=== PATIENT | male | born 1960 ===

== ENCOUNTER 2017-06-30 10:22 | Inpatient (IN) | payer OTHER ==
--- NOTE | 2017-06-30 11:48 | C.PDOC ---
History Of Present Illness 57yo male, presents to ER for evaluation of a painful mass to his right thigh. Patient states he was seen by Dr. Blanc on 06/26/17 and was informed to come to the ER which he didn't. Patient states the area started draining on Friday the and he called the clinic to make an appointment for visit; patient was seen in the clinic today and was sent to the ER for evaluation. He reports pain to the area. Patient denies any fever, chills and has Rx from Dr Blanc, consult Josias Time Seen by Provider: 06/30/17 11:27 Chief Complaint (Nursing): Lower Extremity Problem/Injury History Per: Patient History/Exam Limitations: no limitations Onset/Duration Of Symptoms: Days Current Symptoms Are (Timing): Still Present Additional History Per: Patient Past Medical History Reviewed: Historical Data, Nursing Documentation, Vital Signs Vital Signs: Last Vital Signs Temp 98.2 F 06/30/17 10:40 Pulse 114 H 06/30/17 10:40 Resp 18 06/30/17 10:40 BP 143/82 06/30/17 10:40 Pulse Ox 95 06/30/17 13:04 - Medical History PMH: Diabetes (unsure, does not take medications) Surgical History: No Surg Hx Family History: States: No Known Family Hx - Social History Hx Alcohol Use: No Hx Substance Use: No - Immunization History Hx Tetanus Toxoid Vaccination: No Hx Influenza Vaccination: No Hx Pneumococcal Vaccination: No Review Of Systems Constitutional: Negative for: Fever, Chills Respiratory: Negative for: Cough Gastrointestinal: Negative for: Abdominal Pain Musculoskeletal: Positive for: Leg Pain (right thigh with painful mass) Neurological: Negative for: Headache Physical Exam - Physical Exam Appears: Non-toxic, No Acute Distress Skin: Normal Color, Warm, Dry Head: Atraumatic, Normacephalic Eye(s): bilateral: Normal Inspection, EOMI Neck: Supple Chest: Symmetrical Cardiovascular: Rhythm Regular Respiratory: Normal Breath Sounds Gastrointestinal/Abdominal: Normal Exam, Soft, No Tenderness Extremity: Tenderness (tenderness to right inner thigh), No Deformity, Other ( 10cm by 6cm indurated erythemnatous mass to right inner thigh with purulent discharge) Neurological/Psych: Oriented x3, Normal Speech, Normal Motor, Normal Sensation ED Course And Treatment - Laboratory Results Result Diagrams: 06/30/17 12:16 06/30/17 12:16 O2 Sat by Pulse Oximetry: 95 (RA) Medical Decision Making Medical Decision Making: Impression: Abscess to right inner thigh Plan: -- CMP -- CBC -- Wound culture -- Urinalysis 1230 -- Patient to be taken to OR by Dr. Asencio for I&D 1302 Dr. Cruz informed of case and plan; patient to be admitted under Dr. Cruz. Disposition - Disposition Disposition: HOSPITALIZED Disposition Time: 13:00 Condition: STABLE - POA Present On Arrival: Poor Glycemic Control - Clinical Impression Clinical Impression: Abscess of right thigh - PA / [employer] / Resident Statement MD/DO has reviewed & agrees with the documentation as recorded. - Scribe Statement The provider has reviewed the documentation as recorded by the Danielibe Moriah Weeks Provider Scribe Attestation: All medical record entries made by the Scribe were at my direction and personally dictated by me. I have reviewed the chart and agree that the record accurately reflects my personal performance of the history, physical exam, medical decision making, and the department course for this patient. I have also personally directed, reviewed, and agree with the discharge instructions and disposition. Decision To Admit - Pt Status Changed To: Hospital Disposition Of: Inpatient - Admit Certification Admit to Inpatient:: After my assessment, the patient will require hospitalization for at least two midnights. This is because of the severity of symptoms shown, intensity of services needed, and/or the medical risk in this patient being treated as an outpatient. - InPatient: Physician Admission Certification: I certify that this patient requires 2 or more midnights of care for the following reason:: Patient with acute abscess to right thigh, needs surgical drainage. Dr Ferrara is consulting physician. Anthony admits for John Paul Blanc and accepts case - . Bed Request Type: Regular Admitting Physician: Carlito Cruz Patient Diagnosis: Abscess of right thigh
[2017-06-30 12:22] LABS: BASO # 0.1 K/uL (0.0-0.2); BASO % 0.8 % (0.0-2.0); EOS # 0.1 K/uL (0.0-0.7); EOS % 0.5 % (0.0-4.0); HEMOGLOBIN 16.2 g/dL (12.0-18.0); LYMPH # 2.6 K/uL (1.0-4.3); LYMPH % 24.1 % (20.0-40.0); MEAN CELL VOLUME 86.4 fL (80.0-94.0); MEAN CORPUSCULAR HEMOGLOBIN 29.4 pg (27.0-31.0); MEAN CORPUSCULAR HGB CONC 34.1 g/dL (33.0-37.0); MEAN PLATELET VOLUME 7.5 fL (7.2-11.7); MONO # 1.1 K/uL (0.0-0.8); MONO % 10.1 % (0.0-10.0); NEUT # 7.1 K/uL (1.8-7.0); NEUT % 64.5 % (50.0-75.0); RBC 5.51 Mil/uL (4.40-5.90); RED CELL DISTRIBUTION WIDTH 13.1 % (11.5-14.5); WHITE BLOOD COUNT 10.9 K/uL (4.8-10.8)
[2017-06-30 12:37] LABS: ALB/GLOB RATIO 0.7 (1.0-2.1); ALBUMIN 3.5 g/dL (3.5-5.0); ALT/SGPT 51 U/L (21-72); AST/SGOT 40 U/L (17-59); BLOOD UREA NITROGEN 13 mg/dL (9-20); GFR AFRICAN-AMERICAN > 60; GFR NON-AFRICAN AMERICAN > 60
--- NOTE | 2017-06-30 12:44 | CP.PCM.CON ---
<Julio Nielson - Last Filed: 06/30/17 15:50> History of Present Illness - History of Present Illness History of Present Illness: General Surgery Note for Dr. Ferrara Reason for Consult: R leg abscess 57 M with no PMH presents to [facility] for complaint of Right thigh abscess. Patient states that he has had this on his leg for about 1 week. He states Friday is became more swollen and he tried squeezing it. Eventually, he was able to expel white discharge from the abscess. Patient thought it would get better after relieving pressure. Over the weekend, the pain increased and wound worsened in appearance so patient decided to com to hospital. Patient currently denying any pain. He denies any alleviating or exacerbating factors. Patient denies seeing any physicians recently or taking any [id number] at home. Patient did report that recently he was told he has high sugar levels. Denies fever/chills, chest pain, SOB, abdominal pain, nausea/vomiting, diarrhea , incontinence. PMD: Denies PMH: Denies Medications: Denies Allergy: NKDA PSH: Denies FH: unknown Social: denies tobacco/illicit drug use, admits to occasional EtOH Review of Systems - Review of Systems All systems: reviewed and no additional remarkable complaints except (as per HPI ) Past Patient History - Past Social History Smoking Status: Never Smoked - PSYCHIATRIC Hx Substance Use: No - SURGICAL HISTORY Hx Surgeries: No - ANESTHESIA Hx Anesthesia: No Meds Allergies/Adverse Reactions: Allergies Allergy/AdvReac Type Severity Reaction Status Date / Time No Known Allergies Allergy Verified 06/30/17 10:44 Physical Exam - Constitutional Appears: No Acute Distress - Head Exam Head Exam: ATRAUMATIC, NORMOCEPHALIC - Eye Exam Eye Exam: EOMI, Normal appearance Pupil Exam: PERRL - ENT Exam ENT Exam: Mucous Membranes Moist - Respiratory Exam Respiratory Exam: NORMAL BREATHING PATTERN - Cardiovascular Exam Cardiovascular Exam: Tachycardia - GI/Abdominal Exam GI & Abdominal Exam: Normal Bowel Sounds, Soft. absent: Tenderness - Extremities Exam Extremities exam: Positive for: pedal pulses present Additional comments: RLE: distal thigh wound, erthyema, induration present Pulses present bilaterally, Chronic skin changes in LEs bilaterally - Neurological Exam Neurological exam: Alert, Oriented x3 - Psychiatric Exam Psychiatric exam: Normal Affect, Normal Mood - Skin Skin Exam: Dry, Warm Results - Vital Signs Recent Vital Signs: Last Vital Signs Temp 98.2 F 06/30/17 10:40 Pulse 114 H 06/30/17 10:40 Resp 18 06/30/17 10:40 BP 143/82 06/30/17 10:40 Pulse Ox 95 06/30/17 12:04 - Labs Result Diagrams: 06/30/17 12:16 06/30/17 12:16 Labs: Laboratory Results - last 24 hr 06/30/17 06/30/17 12:16 12:16 WBC 10.9 H RBC 5.51 Hgb 16.2 Hct 47.6 MCV 86.4 MCH 29.4 MCHC 34.1 RDW 13.1 Plt Count 512 H MPV 7.5 Neut % (Auto) 64.5 Lymph % (Auto) 24.1 [place] % (Auto) 10.1 H Eos % (Auto) 0.5 Baso % (Auto) 0.8 Neut # 7.1 H Lymph # 2.6 [place] # 1.1 H Eos # 0.1 Baso # 0.1 Sodium 131 L Potassium 4.4 Chloride 93 L Carbon Dioxide 30 Anion Gap 13 BUN 13 Creatinine 0.6 L Est GFR ( Amer) > 60 Est GFR (Non-Af Amer) > 60 Random Glucose 242 H Calcium 9.0 Total Bilirubin 0.9 AST 40 ALT 51 Alkaline Phosphatase 85 Total Protein 8.2 Albumin 3.5 Globulin 4.7 H Albumin/Globulin Ratio 0.7 L Assessment & Plan - Assessment and Plan (Free Text) Plan: 57 M with RLE thigh abscess -NPO -IV antibiotics -IV fluids -Analgesics PRN -OR today for I&D -Discussed with Dr. Josias Nielson PGY1 <Filipe Ferrara - Last Filed: 07/05/17 16:07> Meds - Medications Medications: Current Medications Hydromorphone HCl (Dilaudid) 0.5 mg IVP Q3H PRN PRN Reason: Pain, severe (8-10) Piperacillin Sod/Tazobactam Sod (Zosyn 3.375 Gm Iv Premix) 3.375 gm in 50 mls @ 100 mls/hr IVPB Q6 VANE Last Admin: 07/05/17 11:37 Dose: 100 mls/hr Vancomycin HCl 1,200 mg/ (Sodium Chloride) 250 mls @ 166.6 mls/hr IVPB Q12H VANE Last Admin: 07/05/17 14:12 Dose: 166.6 mls/hr Insulin Human Regular (Novolin R) 0 unit SC ACHS VANE PRN Reason: Protocol Last Admin: 07/05/17 11:57 Dose: 2 unit Results - Vital Signs Recent Vital Signs: Last Vital Signs Temp 98.5 F 07/05/17 10:00 Pulse 91 H 07/05/17 10:00 Resp 20 07/05/17 10:00 BP 145/79 07/05/17 10:00 Pulse Ox 95 07/05/17 10:00 - Labs Result Diagrams: 07/05/17 07:44 07/05/17 07:44 Labs: Laboratory Results - last 24 hr 07/04/17 07/04/17 07/05/17 16:01 21:23 07:44 WBC 9.9 RBC 4.72 Hgb 14.0 Hct 40.5 MCV 85.7 MCH 29.7 MCHC 34.6 RDW 13.0 Plt Count 301 D MPV 7.9 Neut % (Auto) 69.6 Lymph % (Auto) 17.7 L [place] % (Auto) 10.1 H Eos % (Auto) 1.9 Baso % (Auto) 0.7 Neut # 6.9 Lymph # 1.8 [place] # 1.0 H Eos # 0.2 Baso # 0.1 Sodium Potassium Chloride Carbon Dioxide Anion Gap BUN Creatinine Est GFR ( Amer) Est GFR (Non-Af Amer) POC Glucose (mg/dL) 194 H 203 H Random Glucose Calcium Total Bilirubin Direct Bilirubin AST ALT Alkaline Phosphatase Total Protein Albumin Globulin Albumin/Globulin Ratio 07/05/17 07/05/17 07:44 08:04 WBC RBC Hgb Hct MCV MCH MCHC RDW Plt Count MPV Neut % (Auto) Lymph % (Auto) [place] % (Auto) Eos % (Auto) Baso % (Auto) Neut # Lymph # [place] # Eos # Baso # Sodium 133 Potassium 3.5 L Chloride 100 Carbon Dioxide 27 Anion Gap 9 L BUN 10 Creatinine 0.6 L Est GFR ( Amer) > 60 Est GFR (Non-Af Amer) > 60 POC Glucose (mg/dL) 162 H Random Glucose 179 H Calcium 8.6 Total Bilirubin 1.0 Direct Bilirubin 0.5 H AST 25 ALT 25 Alkaline Phosphatase 68 Total Protein 7.1 Albumin 3.2 L Globulin 3.9 Albumin/Globulin Ratio 0.8 L Attending/Attestation - Attestation I have personally seen and examined this patient.: Yes I have fully participated in the care of the patient.: Yes I have reviewed all pertinent clinical information: Yes Notes (Text): Pt was seen and examined at bedside Agree with above note and assessment Pt with Right abscess with necrotic wound with cellulitis Labs and Radiology reviewed OR for Wound debridement and drainage of abscess Consent IV antibiotics NPO, IVF Plan d.w pt in detail Risk and benefit explained in detail.
[2017-06-30 12:55] LABS: SQUAMOUS EPITHIAL 13 /hpf (0-5); URINE BACTERIA RARE (<OCC); URINE BILIRUBIN NEGATIVE (NEGATIVE); URINE BLOOD NEGATIVE (NEGATIVE); URINE CLARITY Hazy (Clear); URINE COLOR Amber (YELLOW); URINE GLUCOSE (UA) 2+ mg/dL (Normal); URINE LEUKOCYTE ESTERASE 2+ Leu/uL (Negative); URINE NITRATE NEGATIVE (NEGATIVE); URINE PROTEIN 2+ mg/dL (NEGATIVE)
--- NOTE | 2017-06-30 13:12 | RAD ---
HISTORY: pre - op COMPARISON: None available. TECHNIQUE: Chest, one view. FINDINGS: Examination limited by habitus and hypoinflation. LUNGS: Mild left perihilar patchy opacity may reflect atelectasis or infiltrate. Please note that chest x-ray has limited sensitivity for the detection of pulmonary masses. PLEURA: No significant pleural effusion identified. No definite pneumothorax . CARDIOVASCULAR: Cardiomegaly. OSSEOUS STRUCTURES: Degenerative changes. VISUALIZED UPPER ABDOMEN: Unremarkable. OTHER FINDINGS: None. IMPRESSION: Mild left perihilar patchy opacity may reflect atelectasis or infiltrate. Cardiomegaly. Hypoinflation.
[2017-06-30 13:24] LABS: INR 1.2; PROTHROMBIN TIME 13.3 SECONDS (9.7-12.2)
--- NOTE | 2017-06-30 13:41 | CP.PCM.HP ---
History of Present Illness - History of Present Illness History of Present Illness: 57 YEAR T2DM 3 DAYS H/O ABSCESS IN THE R. INNER THIGH WHICH HAS PARTIALLY RUPTURED FOR ADMISSION FOR I&D AND IV AB Present on Admission - Present on Admission Any Indicators Present on Admission: No Past Patient History - Past Social History Smoking Status: Never Smoked - PSYCHIATRIC Hx Substance Use: No - SURGICAL HISTORY Hx Surgeries: No - ANESTHESIA Hx Anesthesia: No Meds Allergies/Adverse Reactions: Allergies Allergy/AdvReac Type Severity Reaction Status Date / Time No Known Allergies Allergy Verified 06/30/17 10:44 Results - Vital Signs Recent Vital Signs: Last Vital Signs Temp 98.2 F 06/30/17 10:40 Pulse 114 H 06/30/17 10:40 Resp 18 06/30/17 10:40 BP 143/82 06/30/17 10:40 Pulse Ox 95 06/30/17 13:04 - Labs Result Diagrams: 06/30/17 12:16 06/30/17 12:16 Labs: Laboratory Results - last 24 hr 06/30/17 06/30/17 06/30/17 12:16 12:16 12:42 WBC 10.9 H RBC 5.51 Hgb 16.2 Hct 47.6 MCV 86.4 MCH 29.4 MCHC 34.1 RDW 13.1 Plt Count 512 H MPV 7.5 Neut % (Auto) 64.5 Lymph % (Auto) 24.1 [place] % (Auto) 10.1 H Eos % (Auto) 0.5 Baso % (Auto) 0.8 Neut # 7.1 H Lymph # 2.6 [place] # 1.1 H Eos # 0.1 Baso # 0.1 PT INR APTT Sodium 131 L Potassium 4.4 Chloride 93 L Carbon Dioxide 30 Anion Gap 13 BUN 13 Creatinine 0.6 L Est GFR ( Amer) > 60 Est GFR (Non-Af Amer) > 60 Random Glucose 242 H Calcium 9.0 Total Bilirubin 0.9 AST 40 ALT 51 Alkaline Phosphatase 85 Total Protein 8.2 Albumin 3.5 Globulin 4.7 H Albumin/Globulin Ratio 0.7 L Urine Color Mela Urine Clarity Hazy Urine pH 6.0 Ur Specific [place] 1.026 Urine Protein 2+ H Urine Glucose (UA) 2+ H Urine Ketones Negative Urine Blood Negative Urine Nitrate Negative Urine Bilirubin Negative Urine Urobilinogen 4.0 Ur Leukocyte Esterase 2+ H Urine WBC (Auto) 7 H Urine RBC (Auto) 3 Ur Squamous Epith Cells 13 H Urine Bacteria Rare Blood Type 06/30/17 06/30/17 13:02 13:02 WBC RBC Hgb Hct MCV MCH MCHC RDW Plt Count MPV Neut % (Auto) Lymph % (Auto) [place] % (Auto) Eos % (Auto) Baso % (Auto) Neut # Lymph # [place] # Eos # Baso # PT 13.3 H INR 1.2 APTT 27 Sodium Potassium Chloride Carbon Dioxide Anion Gap BUN Creatinine Est GFR ( Amer) Est GFR (Non-Af Amer) Random Glucose Calcium Total Bilirubin AST ALT Alkaline Phosphatase Total Protein Albumin Globulin Albumin/Globulin Ratio Urine Color Urine Clarity Urine pH Ur Specific [place] Urine Protein Urine Glucose (UA) Urine Ketones Urine Blood Urine Nitrate Urine Bilirubin Urine Urobilinogen Ur Leukocyte Esterase Urine WBC (Auto) Urine RBC (Auto) Ur Squamous Epith Cells Urine Bacteria Blood Type A POSITIVE Assessment & Plan (1) Abscess of right thigh Status: Acute Comment: I&D. IV AB. C/S (2) T2DM (type 2 diabetes mellitus) Status: Acute
[2017-06-30] MEDS: Piperacill/Tazo 3.375gm in Dex 3.375 GM/50 ML BAG IVPB SCH (14:09)
[2017-06-30] MEDS: Sodium Chloride 0.45% 1,000 ML IV SCH (14:09)
[2017-06-30] MEDS: (Novolin R) Insulin Human Regular 100 units/ml vial SC SCH ×3 (16:49→22:11)
[2017-06-30] MEDS ORDERED: (Novolin R) Insulin Human Regular 100 units/ml vial ONE (16:49)
[2017-06-30] MEDS ORDERED: Lidocaine 1%/Epinephrine 1:100000 30 ml vial IJ STA (17:13)
[2017-06-30] MEDS ORDERED: Lactated Ringer's 1,000 ML IV ONE (17:18)
[2017-06-30] MEDS ORDERED: Sodium Chloride 0.9% 1,000 ML IV ONE (17:18)
[2017-06-30] MEDS ORDERED: Midazolam 2 MG/2 ML VIAL ONE (18:24)
[2017-06-30] MEDS ORDERED: Propofol 10 mg/ml Inj (20 ML) ONE (18:24)
[2017-06-30] MEDS ORDERED: Morphine 4 MG/ML VIAL ONE (18:41)
[2017-06-30] MEDS ORDERED: HYDROmorphone 0.5 mg/0.5 ml ISec IVP PRN (18:41)
--- NOTE | 2017-06-30 18:52 | PCM.SURG1 ---
Surgeon's Initial Post Op Note - Surgeon's Notes Surgeon: Dr. Ferrara Solar Sales Assessor: Nisreen PGY1 Type of Anesthesia: IV Sedation, Local Anesthesia Administered By: Dr. Bean Pre-Operative Diagnosis: Necrotic wound on Right thigh Operative Findings: see operative report Post-Operative Diagnosis: Necrotic wound on Right thigh Operation Performed: debridement, irrigation, and packing of Necrotic wound on Right thigh Specimen/Specimens Removed: wound culture, Necrotic tissue from right thigh Estimated Blood Loss: EBL {In ML}: 5 Blood Products Given: N/A Drains Used: No Drains Post-Op Condition: Good Date of Surgery/Procedure: 06/30/17 Time of Surgery/Procedure: 06:15
[2017-07-01] MEDS: Piperacill/Tazo 3.375gm in Dex 3.375 GM/50 ML BAG IVPB SCH ×3 (00:36→12:09)
[2017-07-01] MEDS: Sodium Chloride 0.45% 1,000 ML IV SCH ×2 (02:15→05:14)
[2017-07-01] MEDS: (Novolin R) Insulin Human Regular 100 units/ml vial SC SCH ×4 (07:44→22:26)
--- NOTE | 2017-07-01 08:42 | OP ---
PROCEDURE DATE: 06/30/2017 PREOPERATIVE DIAGNOSES: 1. Right thigh abscess with cellulitis. 2. Possible underlying diabetes mellitus. POSTOPERATIVE DIAGNOSES: 1. Right thigh abscess with cellulitis. 2. Possible underlying diabetes mellitus. PROCEDURE DONE: 1. Incision and drainage of right thigh abscess. 2. Excisional debridement of the soft tissue of the wound, approximately 6 x 4 x 4 cm size. TYPE OF ANESTHESIA: Local anesthesia plus sedation. ESTIMATED BLOOD LOSS: 10 mL. DRAIN: None. PATHOLOGY: 1. Pus was sent for the culture and sensitivity. 2. necrotic skin as well as the tissue were sent for the pathology. COMPLICATIONS: None. INTRAOPERATIVE FINDINGS: The patient had full-thickness necrosis of the skin, subcutaneous tissue of the right middle thigh with underlying 3 x 3 cm abscess. DESCRIPTION OF PROCEDURE: On intraoperative steps, this is a 57-year-old male, who was diagnosed with a right thigh abscess and cellulitis and the patient was consented for incision and drainage of the right thigh abscess with debridement. The patient was brought to the OR, placed supine on the operating table. After induction of the sedation, the right thigh was prepped and draped in a usual sterile fashion. The local anesthesia was injected. The elliptical incision was made surrounding the necrotic skin and soft tissue and excisional debridement of the wound was done. The abscess cavity was entered and the abscess was drained and sent for the culture and sensitivity. Again, excisional debridement of the abscess cavity was done and hemostasis was achieved. The wound was irrigated and packed with iodoform packing and dry sterile dressing was applied. The patient tolerated the procedure well. Count of instrument and gauze was correct. There was no apparent complication. Filipe Ferrara MD
[2017-07-01] MEDS ORDERED: Oxycodone/Acetaminophen 5/325 mg Tab PO PRN (09:06)
--- NOTE | 2017-07-01 11:18 | CP.PCM.PN ---
<Lalo Pedraza - Last Filed: 07/01/17 11:15> Subjective - Date & Time of Evaluation Date of Evaluation: 07/01/17 Time of Evaluation: 07:10 - Subjective Subjective: General Surgery Pt S&E, DELILAHEO. pt has some pain at site but it is controlled with meds. No other complaints Objective - Vital Signs/Intake and Output Vital Signs (last 24 hours): Temp Pulse Resp BP Pulse Ox 99.2 F 82 20 137/81 95 07/01/17 08:00 07/01/17 08:00 07/01/17 08:00 07/01/17 08:00 07/01/17 08:00 Intake and Output: 07/01/17 07/01/17 06:59 18:59 Intake Total 1300 Balance 1300 - Medications Medications: Current Medications Heparin Sodium (Porcine) (Heparin) 5,000 units SC Q12 [facility] Last Admin: 07/01/17 09:14 Dose: 5,000 units Hydromorphone HCl (Dilaudid) 0.5 mg IVP Q3H PRN PRN Reason: Pain, severe (8-10) Piperacillin Sod/Tazobactam Sod (Zosyn 3.375 Gm Iv Premix) 3.375 gm in 50 mls @ 100 mls/hr IVPB Q6 [facility] Stop: 07/01/17 15:00 Last Admin: 07/01/17 05:14 Dose: 100 mls/hr Vancomycin HCl 1,000 mg/ (Sodium Chloride) 200 mls @ 166.6 mls/hr IVPB Q12H [facility] Last Admin: 07/01/17 01:52 Dose: 166.6 mls/hr Sodium Chloride (Sodium Chloride 0.45%) 1,000 mls @ 80 mls/hr IV .[id number] [facility] Last Admin: 07/01/17 05:14 Dose: 80 mls/hr Piperacillin Sod/Tazobactam (Sod 3.375 gm/ Sodium Chloride) 100 mls @ 100 mls/ hr IVPB Q6 [facility] Insulin Human Regular (Novolin R) 0 unit SC ACHS VANE PRN Reason: Protocol Last Admin: 07/01/17 07:44 Dose: 3 unit Oxycodone/Acetaminophen (Percocet 5/325 Mg Tab) 2 tab PO Q4H PRN PRN Reason: Pain, moderate (4-7) Stop: 07/04/17 09:07 Pneumococcal Polyvalent Vaccine (Pneumovax 23 Vaccine) 0.5 ml IM .ONCE ONE Stop: 07/03/17 10:01 - Labs Labs: 06/30/17 12:16 06/30/17 12:16 PT 13.3 SECONDS (9.7-12.2) H 06/30/17 13:02 INR 1.2 06/30/17 13:02 APTT 27 SECONDS (21-34) 06/30/17 13:02 - Constitutional Appears: Non-toxic, No Acute Distress - Head Exam Head Exam: ATRAUMATIC, NORMOCEPHALIC - Eye Exam Eye Exam: EOMI. absent: Scleral icterus - Respiratory Exam Respiratory Exam: NORMAL BREATHING PATTERN. absent: Respiratory Distress - Extremities Exam Additional comments: RLE: distal thigh wound, erthyema, induration present. Dressing Intact Pulses present bilaterally, Chronic skin changes in LEs bilaterally - Neurological Exam Neurological Exam: Alert, Awake, Oriented x3 - Skin Skin Exam: Dry, Warm Assessment and Plan - Assessment and Plan (Free Text) Assessment: 57M with RLE thigh abscess s/p I&D, POD#1 Plan: -IV antibiotics -Analgesics PRN -Dressing and packing change tomorrow -D/W Dr. Josias Pedraza PGY4 <Filipe Ferrara - Last Filed: 07/05/17 16:11> Objective - Vital Signs/Intake and Output Vital Signs (last 24 hours): Temp Pulse Resp BP Pulse Ox 98.5 F 91 H 20 145/79 95 07/05/17 10:00 07/05/17 10:00 07/05/17 10:00 07/05/17 10:00 07/05/17 10:00 Intake and Output: 07/05/17 07/05/17 06:59 18:59 Intake Total 1100 1080 Output Total 1100 Balance 0 1080 - Medications Medications: Current Medications Hydromorphone HCl (Dilaudid) 0.5 mg IVP Q3H PRN PRN Reason: Pain, severe (8-10) Piperacillin Sod/Tazobactam Sod (Zosyn 3.375 Gm Iv Premix) 3.375 gm in 50 mls @ 100 mls/hr IVPB Q6 VANE Last Admin: 07/05/17 11:37 Dose: 100 mls/hr Vancomycin HCl 1,200 mg/ (Sodium Chloride) 250 mls @ 166.6 mls/hr IVPB Q12H [facility] Last Admin: 07/05/17 14:12 Dose: 166.6 mls/hr Insulin Human Regular (Novolin R) 0 unit SC ACHS VANE PRN Reason: Protocol Last Admin: 07/05/17 11:57 Dose: 2 unit - Labs Labs: 07/05/17 07:44 07/05/17 07:44 PT 13.3 SECONDS (9.7-12.2) H 06/30/17 13:02 INR 1.2 06/30/17 13:02 APTT 27 SECONDS (21-34) 06/30/17 13:02 Attending/Attestation - Attestation I have personally seen and examined this patient.: Yes I have fully participated in the care of the patient.: Yes I have reviewed all pertinent clinical information, including history, physical exam and plan: Yes Notes (Text): Pt was seen and examined at bedside Agree with above note and assessment Pt is improving clinically Packing change tomorrow C.w current mx IV antibiotics Plan d.w pt in detail
--- NOTE | 2017-07-01 13:07 | CP.PCM.CON ---
History of Present Illness - History of Present Illness History of Present Illness: INFECTIOUS DISEASE CONSULT; HPI; 57-year-old male with no significant past medical history who was admitted to [facility] on 06/30/17 with a right thigh abscess and progressively increasing pain and swelling for about a week. Patient tried to squeeze out the pus was able to expel some pus but the pain got worse and patient decided to come to the hospital. Patient denied any history of diabetes or any such event before. Patient is status post I&D, irrigation and packing of necrotic wound by surgery on 06/30/17. Patient presently was started on IV Zosyn 3.3756 hourly and IV vancomycin 1 g every 12 hourly. Patient denies much pain right leg upper thigh but his extremity is warm /and indurated. Patient presently on IV Zosyn and IV vancomycin. Wound cultures showed no polymorphonuclears and rare gram-positive cocci. Identification still pending. BLOOD SUGARS ARE FOUND TO BE ELEVATED, TO 266, 241 . Infectious disease consultation requested by PMD for right thigh abscess. PMD: Denies history of diabetes, hypertension, ASHD, COPD. Medications: Denies Allergy: NKDA PSH: Denies FH: unknown Social: denies tobacco/illicit drug use, admits to occasional EtOH Review of Systems - Constitutional Constitutional: absent: Chills, Fever - EENT Eyes: Change in Vision Nose/Mouth/Throat: absent: Sinus Pressure, Mouth Lesions - Cardiovascular Cardiovascular: Leg Edema, Leg Ulcers (RIGHT UPPER THIGH NECROTIC WOUND S/P I & D.). absent: Chest Pain, Dyspnea on Exertion - Gastrointestinal Gastrointestinal: absent: Abdominal Pain, Constipation, Diarrhea - Genitourinary Genitourinary: absent: Dysuria, Hematuria, Nocturia, Freq UTI - Neurological Neurological: absent: Headaches - Endocrine Endocrine: absent: Polydipsia - Hematologic/Lymphatic Hematologic: absent: As Per HPI Past Patient History - Past Medical History & Family History Past Medical History?: No - Past Social History Smoking Status: Never Smoked - MUSCULOSKELETAL/RHEUMATOLOGICAL Hx Falls: No - PSYCHIATRIC Hx Substance Use: No - SURGICAL HISTORY Hx Surgeries: No - ANESTHESIA Hx Anesthesia: No Meds Allergies/Adverse Reactions: Allergies Allergy/AdvReac Type Severity Reaction Status Date / Time No Known Allergies Allergy Verified 06/30/17 10:44 - Medications Medications: Current Medications Heparin Sodium (Porcine) (Heparin) 5,000 units SC Q12 [facility] Last Admin: 07/01/17 09:14 Dose: 5,000 units Hydromorphone HCl (Dilaudid) 0.5 mg IVP Q3H PRN PRN Reason: Pain, severe (8-10) Piperacillin Sod/Tazobactam Sod (Zosyn 3.375 Gm Iv Premix) 3.375 gm in 50 mls @ 100 mls/hr IVPB Q6 [facility] Stop: 07/01/17 15:00 Last Admin: 07/01/17 12:09 Dose: 100 mls/hr Vancomycin HCl 1,000 mg/ (Sodium Chloride) 200 mls @ 166.6 mls/hr IVPB Q12H [facility] Last Admin: 07/01/17 01:52 Dose: 166.6 mls/hr Sodium Chloride (Sodium Chloride 0.45%) 1,000 mls @ 80 mls/hr IV .[id number] [facility] Last Admin: 07/01/17 05:14 Dose: 80 mls/hr Piperacillin Sod/Tazobactam (Sod 3.375 gm/ Sodium Chloride) 100 mls @ 100 mls/ hr IVPB Q6 [facility] Insulin Human Regular (Novolin R) 0 unit SC ACHS [facility] PRN Reason: Protocol Last Admin: 07/01/17 12:04 Dose: 4 unit Oxycodone/Acetaminophen (Percocet 5/325 Mg Tab) 2 tab PO Q4H PRN PRN Reason: Pain, moderate (4-7) Stop: 07/04/17 09:07 Pneumococcal Polyvalent Vaccine (Pneumovax 23 Vaccine) 0.5 ml IM .ONCE ONE Stop: 07/03/17 10:01 Results - Vital Signs Recent Vital Signs: Last Vital Signs Temp 99.2 F 07/01/17 08:00 Pulse 82 07/01/17 08:00 Resp 20 07/01/17 08:00 BP 137/81 07/01/17 08:00 Pulse Ox 95 07/01/17 08:00 - Labs Result Diagrams: 06/30/17 12:16 06/30/17 12:16 Labs: Laboratory Results - last 24 hr 06/30/17 06/30/17 06/30/17 13:02 13:02 16:42 PT 13.3 H INR 1.2 APTT 27 POC Glucose (mg/dL) 185 H Blood Type A POSITIVE Antibody Screen Negative 06/30/17 07/01/17 07/01/17 19:22 07:05 11:08 PT INR APTT POC Glucose (mg/dL) 185 H 244 H 266 H Blood Type Antibody Screen - Imaging and Cardiology Chest x-ray Status: Report reviewed by me (mild left perihilar opacity/atelectasis versus infiltrate. Cardiomegaly.) Assessment & Plan (1) Abscess of right thigh Status: Acute (2) T2DM (type 2 diabetes mellitus) Status: Acute - Assessment and Plan (Free Text) Plan: PLAN; PANCULTURES. WOUND CULTURE- PENDING. ESR. CRP. D-DIMER. MRSA SCREEN. CONTINUE iv ZOSYN 3.375 EVERY 6 HOURLY 06/30/17. CONTINUE iv VANCOMYCIN 1 G EVERY 12 HOURLY. 06/30/17. VANCO TROUGH LEVEL IN A.M. AND KEEP BETWEEN 10 AND 20. FOLLOW-UP RENAL FUNCTIONS CLOSELY. MRI RT THIGH WITHOUT CONTRAST R/O OSTEOMYELITIS. LOCAL WOUND CARE PER SURGERY. WILL FOLLOW ALONG WITH YOU AND MAKE RECOMMENDATIONS NEEDED. THANK YOU
--- NOTE | 2017-07-01 13:10 | CP.PCM.PN ---
Subjective - Date & Time of Evaluation Date of Evaluation: 07/01/17 Time of Evaluation: 13:09 - Subjective Subjective: S/P I&D R THIGH ABSCESS PT CLAIMS HE HAS NO DM AWAITING C/C ID EVAL Objective - Vital Signs/Intake and Output Vital Signs (last 24 hours): Temp Pulse Resp BP Pulse Ox 99.2 F 82 20 137/81 95 07/01/17 08:00 07/01/17 08:00 07/01/17 08:00 07/01/17 08:00 07/01/17 08:00 Intake and Output: 07/01/17 07/01/17 11:59 23:59 Intake Total 880 Balance 880 - Medications Medications: Current Medications Heparin Sodium (Porcine) (Heparin) 5,000 units SC Q12 [facility] Last Admin: 07/01/17 09:14 Dose: 5,000 units Hydromorphone HCl (Dilaudid) 0.5 mg IVP Q3H PRN PRN Reason: Pain, severe (8-10) Piperacillin Sod/Tazobactam Sod (Zosyn 3.375 Gm Iv Premix) 3.375 gm in 50 mls @ 100 mls/hr IVPB Q6 [facility] Stop: 07/01/17 15:00 Last Admin: 07/01/17 12:09 Dose: 100 mls/hr Vancomycin HCl 1,000 mg/ (Sodium Chloride) 200 mls @ 166.6 mls/hr IVPB Q12H [facility] Last Admin: 07/01/17 01:52 Dose: 166.6 mls/hr Sodium Chloride (Sodium Chloride 0.45%) 1,000 mls @ 80 mls/hr IV .[id number] [facility] Last Admin: 07/01/17 05:14 Dose: 80 mls/hr Piperacillin Sod/Tazobactam (Sod 3.375 gm/ Sodium Chloride) 100 mls @ 100 mls/ hr IVPB Q6 [facility] Insulin Human Regular (Novolin R) 0 unit SC ACHS [facility] PRN Reason: Protocol Last Admin: 07/01/17 12:04 Dose: 4 unit Oxycodone/Acetaminophen (Percocet 5/325 Mg Tab) 2 tab PO Q4H PRN PRN Reason: Pain, moderate (4-7) Stop: 07/04/17 09:07 Pneumococcal Polyvalent Vaccine (Pneumovax 23 Vaccine) 0.5 ml IM .ONCE ONE Stop: 07/03/17 10:01 - Labs Labs: 06/30/17 12:16 06/30/17 12:16 PT 13.3 SECONDS (9.7-12.2) H 06/30/17 13:02 INR 1.2 06/30/17 13:02 APTT 27 SECONDS (21-34) 06/30/17 13:02 Assessment and Plan (1) Abscess of right thigh Status: Acute (2) T2DM (type 2 diabetes mellitus) Status: Acute
[2017-07-01] MEDS: Piperacillin/Tazobact 3.375 GM in Sodium Chloride 100 ML IVPB SCH (17:25)
[2017-07-02] MEDS: Piperacillin/Tazobact 3.375 GM in Sodium Chloride 100 ML IVPB SCH ×5 (00:12→23:58)
[2017-07-02] MEDS: Sodium Chloride 0.45% 1,000 ML IV SCH ×3 (04:15→15:45)
[2017-07-02] MEDS: (Novolin R) Insulin Human Regular 100 units/ml vial SC SCH ×4 (07:49→22:04)
[2017-07-02 08:30] LABS: BASO # 0.1 K/uL (0.0-0.2); BASO % 0.7 % (0.0-2.0); EOS # 0.1 K/uL (0.0-0.7); EOS % 1.5 % (0.0-4.0); HEMOGLOBIN 14.6 g/dL (12.0-18.0); LYMPH # 2.1 K/uL (1.0-4.3); MEAN CELL VOLUME 86.9 fL (80.0-94.0); MEAN CORPUSCULAR HEMOGLOBIN 29.3 pg (27.0-31.0); MEAN CORPUSCULAR HGB CONC 33.7 g/dL (33.0-37.0); MEAN PLATELET VOLUME 7.7 fL (7.2-11.7); MONO # 0.8 K/uL (0.0-0.8); MONO % 9.8 % (0.0-10.0); NEUT # 5.3 K/uL (1.8-7.0); RBC 4.97 Mil/uL (4.40-5.90); RED CELL DISTRIBUTION WIDTH 13.4 % (11.5-14.5); WHITE BLOOD COUNT 8.4 K/uL (4.8-10.8)
[2017-07-02 08:38] LABS: ALB/GLOB RATIO 0.8 (1.0-2.1); ALBUMIN 3.3 g/dL (3.5-5.0); ALT/SGPT 34 U/L (21-72); AST/SGOT 22 U/L (17-59); BLOOD UREA NITROGEN 12 mg/dL (9-20); CALCIUM 8.7 mg/dl (8.6-10.4); GFR AFRICAN-AMERICAN > 60; GFR NON-AFRICAN AMERICAN > 60
--- NOTE | 2017-07-02 10:15 | CP.PCM.PN ---
<Julio Nielson - Last Filed: 07/02/17 20:43> Subjective - Date & Time of Evaluation Date of Evaluation: 07/02/17 Time of Evaluation: 10:45 - Subjective Subjective: General Surgery Note for Dr. Ferrara Patient seen and examined at bedside. No acute event overnight. Patient states pain is present but controlled. No other complaints. Objective - Vital Signs/Intake and Output Vital Signs (last 24 hours): Temp Pulse Resp BP Pulse Ox 99 F 78 20 145/78 96 07/02/17 08:00 07/02/17 08:00 07/02/17 08:00 07/02/17 08:00 07/02/17 08:00 Intake and Output: 07/02/17 07/02/17 06:59 18:59 Intake Total 1820 Output Total 950 Balance 870 - Medications Medications: Current Medications Heparin Sodium (Porcine) (Heparin) 5,000 units SC Q12 [facility] Last Admin: 07/02/17 09:31 Dose: 5,000 units Hydromorphone HCl (Dilaudid) 0.5 mg IVP Q3H PRN PRN Reason: Pain, severe (8-10) Vancomycin HCl 1,000 mg/ (Sodium Chloride) 200 mls @ 166.6 mls/hr IVPB Q12H [facility] Last Admin: 07/02/17 01:49 Dose: 166.6 mls/hr Sodium Chloride (Sodium Chloride 0.45%) 1,000 mls @ 80 mls/hr IV .[id number] [facility] Last Admin: 07/02/17 04:15 Dose: 80 mls/hr Piperacillin Sod/Tazobactam (Sod 3.375 gm/ Sodium Chloride) 100 mls @ 100 mls/ hr IVPB Q6 [facility] Last Admin: 07/02/17 05:14 Dose: 100 mls/hr Insulin Human Regular (Novolin R) 0 unit SC ACHS [facility] PRN Reason: Protocol Last Admin: 07/02/17 07:49 Dose: 2 unit Oxycodone/Acetaminophen (Percocet 5/325 Mg Tab) 2 tab PO Q4H PRN PRN Reason: Pain, moderate (4-7) Stop: 07/04/17 09:07 Pneumococcal Polyvalent Vaccine (Pneumovax 23 Vaccine) 0.5 ml IM .ONCE ONE Stop: 07/03/17 10:01 - Labs Labs: 07/02/17 08:12 07/02/17 08:12 PT 13.3 SECONDS (9.7-12.2) H 06/30/17 13:02 INR 1.2 06/30/17 13:02 APTT 27 SECONDS (21-34) 06/30/17 13:02 - Constitutional Appears: No Acute Distress - Head Exam Head Exam: ATRAUMATIC, NORMOCEPHALIC - Eye Exam Eye Exam: Normal appearance - ENT Exam ENT Exam: Mucous Membranes Moist - Respiratory Exam Respiratory Exam: NORMAL BREATHING PATTERN - Cardiovascular Exam Cardiovascular Exam: REGULAR RHYTHM - GI/Abdominal Exam GI & Abdominal Exam: Soft. absent: Distended, Tenderness - Extremities Exam Additional comments: RLE: distal thigh wound, erthyema, induration present. Dressing Intact Pulses present bilaterally, Chronic skin changes in LEs bilaterally - Neurological Exam Neurological Exam: Alert, Awake, Oriented x3 - Psychiatric Exam Psychiatric exam: Normal Affect, Normal Mood - Skin Skin Exam: Dry, Warm Assessment and Plan - Assessment and Plan (Free Text) Plan: 57M with RLE thigh wound s/p debridement, irrigation, and packing POD#3 -IV antibiotics -Analgesics PRN -Dressing and packing change tomorrow -D/W Dr. Josias Nielson PGY1 <Filipe Ferrara - Last Filed: 07/05/17 16:15> Objective - Vital Signs/Intake and Output Vital Signs (last 24 hours): Temp Pulse Resp BP Pulse Ox 98.5 F 91 H 20 145/79 95 07/05/17 10:00 07/05/17 10:00 07/05/17 10:00 07/05/17 10:00 07/05/17 10:00 Intake and Output: 07/05/17 07/05/17 06:59 18:59 Intake Total 1100 1080 Output Total 1100 Balance 0 1080 - Medications Medications: Current Medications Hydromorphone HCl (Dilaudid) 0.5 mg IVP Q3H PRN PRN Reason: Pain, severe (8-10) Piperacillin Sod/Tazobactam Sod (Zosyn 3.375 Gm Iv Premix) 3.375 gm in 50 mls @ 100 mls/hr IVPB Q6 [facility] Last Admin: 07/05/17 11:37 Dose: 100 mls/hr Vancomycin HCl 1,200 mg/ (Sodium Chloride) 250 mls @ 166.6 mls/hr IVPB Q12H [facility] Last Admin: 07/05/17 14:12 Dose: 166.6 mls/hr Insulin Human Regular (Novolin R) 0 unit SC ACHS [facility] PRN Reason: Protocol Last Admin: 07/05/17 11:57 Dose: 2 unit - Labs Labs: 07/05/17 07:44 07/05/17 07:44 PT 13.3 SECONDS (9.7-12.2) H 06/30/17 13:02 INR 1.2 06/30/17 13:02 APTT 27 SECONDS (21-34) 06/30/17 13:02 Attending/Attestation - Attestation I have personally seen and examined this patient.: Yes I have fully participated in the care of the patient.: Yes I have reviewed all pertinent clinical information, including history, physical exam and plan: Yes Notes (Text): Pt was seen and examined at bedside Agree with above note and assessment Pt is improving clinically DC plan IV antibiotics Plan d.w pt in detail
--- NOTE | 2017-07-02 13:20 | CP.PCM.PN ---
Subjective - Date & Time of Evaluation Date of Evaluation: 07/02/17 Time of Evaluation: 13:19 - Subjective Subjective: POST OP IMPROVING NO COMPLAINTS AFEBRILE C/S SA , NOT MRSA IV AB PER ID Objective - Vital Signs/Intake and Output Vital Signs (last 24 hours): Temp Pulse Resp BP Pulse Ox 99 F 78 20 145/78 96 07/02/17 08:00 07/02/17 08:00 07/02/17 08:00 07/02/17 08:00 07/02/17 08:00 Intake and Output: 07/02/17 07/02/17 11:59 23:59 Intake Total 880 Balance 880 - Medications Medications: Current Medications Heparin Sodium (Porcine) (Heparin) 5,000 units SC Q12 [facility] Last Admin: 07/02/17 09:31 Dose: 5,000 units Hydromorphone HCl (Dilaudid) 0.5 mg IVP Q3H PRN PRN Reason: Pain, severe (8-10) Vancomycin HCl 1,000 mg/ (Sodium Chloride) 200 mls @ 166.6 mls/hr IVPB Q12H [facility] Last Admin: 07/02/17 01:49 Dose: 166.6 mls/hr Sodium Chloride (Sodium Chloride 0.45%) 1,000 mls @ 80 mls/hr IV .[id number] [facility] Last Admin: 07/02/17 04:15 Dose: 80 mls/hr Piperacillin Sod/Tazobactam (Sod 3.375 gm/ Sodium Chloride) 100 mls @ 100 mls/ hr IVPB Q6 [facility] Last Admin: 07/02/17 12:13 Dose: 100 mls/hr Insulin Human Regular (Novolin R) 0 unit SC ACHS [facility] PRN Reason: Protocol Last Admin: 07/02/17 12:12 Dose: 3 unit Oxycodone/Acetaminophen (Percocet 5/325 Mg Tab) 2 tab PO Q4H PRN PRN Reason: Pain, moderate (4-7) Stop: 07/04/17 09:07 Pneumococcal Polyvalent Vaccine (Pneumovax 23 Vaccine) 0.5 ml IM .ONCE ONE Stop: 07/03/17 10:01 - Labs Labs: 07/02/17 08:12 07/02/17 08:12 PT 13.3 SECONDS (9.7-12.2) H 06/30/17 13:02 INR 1.2 06/30/17 13:02 APTT 27 SECONDS (21-34) 06/30/17 13:02 Assessment and Plan (1) Abscess of right thigh Status: Acute (2) T2DM (type 2 diabetes mellitus) Status: Acute
--- NOTE | 2017-07-02 19:01 | CP.PCM.PN ---
Subjective - Date & Time of Evaluation Date of Evaluation: 07/02/17 Time of Evaluation: 19:01 - Subjective Subjective: AFEBRILE. PAIN RIGHT EXTREMITY IMPROVING. DENIES SHORTNESS OF BREATH dENIES CHEST PAIN. DRESSING IN PLACE RIGHT UPPER THIGH. RIGHT LOWER EXTREMITY SWELLING AND INDURATION +VE. WOUND CULTURE +VE MSSA . PATIENT WENT FOR MRI RIGHT EXTREMITY TODAY REPORT- PENDING. LABS REVIEWED. ESR 81 crp> 15 HIGH D-DIMER 836 HIGH Objective - Vital Signs/Intake and Output Vital Signs (last 24 hours): Temp Pulse Resp BP Pulse Ox 98.7 F 80 20 146/80 95 07/02/17 15:00 07/02/17 15:00 07/02/17 15:00 07/02/17 15:00 07/02/17 15:00 Intake and Output: 07/02/17 07/03/17 18:59 06:59 Intake Total 1440 Output Total 300 Balance 1140 - Medications Medications: Current Medications Heparin Sodium (Porcine) (Heparin) 5,000 units SC Q12 [facility] Last Admin: 07/02/17 09:31 Dose: 5,000 units Hydromorphone HCl (Dilaudid) 0.5 mg IVP Q3H PRN PRN Reason: Pain, severe (8-10) Vancomycin HCl 1,000 mg/ (Sodium Chloride) 200 mls @ 166.6 mls/hr IVPB Q12H [facility] Last Admin: 07/02/17 14:26 Dose: 166.6 mls/hr Sodium Chloride (Sodium Chloride 0.45%) 1,000 mls @ 80 mls/hr IV .[id number] [facility] Last Admin: 07/02/17 04:15 Dose: 80 mls/hr Piperacillin Sod/Tazobactam (Sod 3.375 gm/ Sodium Chloride) 100 mls @ 100 mls/ hr IVPB Q6 [facility] Last Admin: 07/02/17 17:36 Dose: 100 mls/hr Insulin Human Regular (Novolin R) 0 unit SC ACHS [facility] PRN Reason: Protocol Last Admin: 07/02/17 16:30 Dose: 3 unit Oxycodone/Acetaminophen (Percocet 5/325 Mg Tab) 2 tab PO Q4H PRN PRN Reason: Pain, moderate (4-7) Stop: 07/04/17 09:07 Pneumococcal Polyvalent Vaccine (Pneumovax 23 Vaccine) 0.5 ml IM .ONCE ONE Stop: 07/03/17 10:01 - Labs Labs: 07/02/17 08:12 07/02/17 08:12 PT 13.3 SECONDS (9.7-12.2) H 06/30/17 13:02 INR 1.2 06/30/17 13:02 APTT 27 SECONDS (21-34) 06/30/17 13:02 - Constitutional Appears: No Acute Distress - Head Exam Head Exam: NORMAL INSPECTION - Eye Exam Eye Exam: EOMI, PERRL - ENT Exam ENT Exam: Normal Oropharynx - Neck Exam Neck Exam: Normal Inspection - Respiratory Exam Respiratory Exam: Clear to Ausculation Bilateral - Cardiovascular Exam Cardiovascular Exam: REGULAR RHYTHM, +S1, +S2 - GI/Abdominal Exam GI & Abdominal Exam: Soft, Normal Bowel Sounds - Extremities Exam Extremities Exam: Calf Tenderness, Pedal Edema (RT.THIGH S/P I& D PACKING IN PLACE.) - Neurological Exam Neurological Exam: Awake, CN II-XII Intact, Oriented x3 - Psychiatric Exam Psychiatric exam: Normal Mood - Skin Skin Exam: Normal Color, Warm Assessment and Plan (1) Abscess of right thigh Status: Acute (2) T2DM (type 2 diabetes mellitus) Status: Acute - Assessment and Plan (Free Text) Plan: CONTINUE iv ZOSYN 3.375 EVERY 6 HOURLY 06/30/17. CONTINUE iv VANCOMYCIN 1 G EVERY 12 HOURLY. 06/30/17. VANCO TROUGH LEVEL IN A.M. AND KEEP BETWEEN 10 AND 20. FOLLOW-UP RENAL FUNCTIONS CLOSELY. MRI RT THIGH WITHOUT CONTRAST R/O OSTEOMYELITIS.-PENDING DUPLEX VENOUS STUDIES RT. LE. LOCAL WOUND CARE PER SURGERY.
[2017-07-03] MEDS: Sodium Chloride 0.45% 1,000 ML IV SCH (05:00)
[2017-07-03] MEDS: Piperacillin/Tazobact 3.375 GM in Sodium Chloride 100 ML IVPB SCH ×2 (05:20→12:04)
[2017-07-03] MEDS: (Novolin R) Insulin Human Regular 100 units/ml vial SC SCH ×4 (07:41→21:14)
--- NOTE | 2017-07-03 09:56 | MRI ---
MRI right thigh History: Abscess. Evaluate for osteomyelitis. Comparison: None available. Technique: Multi-echo multiplanar sequences were performed through the right thigh without the use of intravenous contrast. Findings: Prominent soft tissue ulceration and/or defect seen within the medial right thigh measuring up to 2.4 x 1.8 x 2.6 centimeters. At the posterior aspect of the soft tissue defect there is a superimposed rounded focal area of increased STIR signal measuring 1.1 x 1.1 x 1.1 centimeters which may represent some residual fluid and or small developing phlegmonous collection at this level. Clinical correlation. In addition, there is prominent increased STIR and T2 signal seen within the lateral aspect of the sartorius muscle belly suggestive for an underlying myositis. Reticulation and edema seen within the adjacent subcutaneous soft tissues. No evidence of signal abnormality within the visualized osseous structures to suggest an acute osteomyelitis. Impression: Prominent soft tissue ulceration and/or defect seen within the medial right thigh measuring up to 2.4 x 1.8 x 2.6 centimeters. At the posterior aspect of the soft tissue defect there is a superimposed rounded focal area of increased STIR signal measuring 1.1 x 1.1 x 1.1 centimeters which may represent some residual fluid and or small developing phlegmonous collection at this level. Clinical correlation. In addition, there is prominent increased STIR and T2 signal seen within the lateral aspect of the sartorius muscle belly suggestive for an underlying myositis. Reticulation and edema seen within the adjacent subcutaneous soft tissues. No evidence of signal abnormality within the visualized osseous structures to suggest an acute osteomyelitis.
[2017-07-03] MEDS ORDERED: Influenza Vaccine 60 mcg/0.5 mL SYR (4YR UP) IM ONE (10:00)
[2017-07-03] MEDS ORDERED: Pneumococcal 23-Valent Vaccine IM ONE (10:00)
--- NOTE | 2017-07-03 13:30 | CP.PCM.PN ---
Subjective - Date & Time of Evaluation Date of Evaluation: 07/03/17 Time of Evaluation: 13:30 - Subjective Subjective: POST OP IMPROVING NO COMPLAINTS AFEBRILE C/S SA , NOT MRSA IV AB PER ID Objective - Vital Signs/Intake and Output Vital Signs (last 24 hours): Temp Pulse Resp BP Pulse Ox 98.3 F 76 20 161/89 H 95 07/03/17 08:26 07/03/17 08:26 07/03/17 08:26 07/03/17 08:26 07/03/17 08:26 Intake and Output: 07/03/17 07/03/17 11:59 23:59 Intake Total 640 Output Total 1000 Balance -360 - Medications Medications: Current Medications Heparin Sodium (Porcine) (Heparin) 5,000 units SC Q12 [facility] Last Admin: 07/03/17 09:19 Dose: 5,000 units Hydromorphone HCl (Dilaudid) 0.5 mg IVP Q3H PRN PRN Reason: Pain, severe (8-10) Vancomycin HCl 1,000 mg/ (Sodium Chloride) 200 mls @ 166.6 mls/hr IVPB Q12H [facility] Last Admin: 07/03/17 02:04 Dose: 166.6 mls/hr Sodium Chloride (Sodium Chloride 0.45%) 1,000 mls @ 80 mls/hr IV .[id number] [facility] Last Admin: 07/03/17 05:00 Dose: Not Given Piperacillin Sod/Tazobactam (Sod 3.375 gm/ Sodium Chloride) 100 mls @ 100 mls/ hr IVPB Q6 [facility] Last Admin: 07/03/17 12:04 Dose: 100 mls/hr Insulin Human Regular (Novolin R) 0 unit SC ACHS [facility] PRN Reason: Protocol Last Admin: 07/03/17 12:04 Dose: 3 unit Oxycodone/Acetaminophen (Percocet 5/325 Mg Tab) 2 tab PO Q4H PRN PRN Reason: Pain, moderate (4-7) Stop: 07/04/17 09:07 - Labs Labs: 07/02/17 08:12 07/02/17 08:12 PT 13.3 SECONDS (9.7-12.2) H 06/30/17 13:02 INR 1.2 06/30/17 13:02 APTT 27 SECONDS (21-34) 06/30/17 13:02 Assessment and Plan (1) Abscess of right thigh Status: Acute (2) T2DM (type 2 diabetes mellitus) Status: Acute
--- NOTE | 2017-07-03 13:52 | CP.PCM.PN ---
Subjective - Date & Time of Evaluation Date of Evaluation: 07/03/17 Time of Evaluation: 13:52 - Subjective Subjective: AFEBRILE, OFFERS NO NEW COMPLAINTS. RIGHT THIGH WOUND DECREASED DRAINAGE. MRI RIGHT EXTREMITY; MYOSITIS sARTORIUS BELLY WITH SMALL DEVELOPING PHLEGMON, COLLECTION OR RESIDUAL FLUID. RETICULATION AND EDEMA SUBCUTANEOUS SOFT TISSUES. DUPLEX VENOUS STUDY RIGHT LOWER EXTREMITY -VE FOR DVT. PATIENT TOLERATING iv ANTIBIOTICS. lABS REVIEWED. VANCO TROUGH LEVEL 7.8 LOW. WILL INCREASE THE DOSE OFF VANCOMYCIN TO 1200 MG iv PIGGYBACK EVERY 12 HOURLY. Objective - Vital Signs/Intake and Output Vital Signs (last 24 hours): Temp Pulse Resp BP Pulse Ox 98.3 F 76 20 161/89 H 95 07/03/17 08:26 07/03/17 08:26 07/03/17 08:26 07/03/17 08:26 07/03/17 08:26 Intake and Output: 07/03/17 07/03/17 06:59 18:59 Intake Total 1200 640 Output Total 3 1000 Balance 1197 -360 - Medications Medications: Current Medications Heparin Sodium (Porcine) (Heparin) 5,000 units SC Q12 [facility] Last Admin: 07/03/17 09:19 Dose: 5,000 units Hydromorphone HCl (Dilaudid) 0.5 mg IVP Q3H PRN PRN Reason: Pain, severe (8-10) Vancomycin HCl 1,000 mg/ (Sodium Chloride) 200 mls @ 166.6 mls/hr IVPB Q12H [facility] Last Admin: 07/03/17 02:04 Dose: 166.6 mls/hr Sodium Chloride (Sodium Chloride 0.45%) 1,000 mls @ 80 mls/hr IV .[id number] [facility] Last Admin: 07/03/17 05:00 Dose: Not Given Piperacillin Sod/Tazobactam (Sod 3.375 gm/ Sodium Chloride) 100 mls @ 100 mls/ hr IVPB Q6 [facility] Last Admin: 07/03/17 12:04 Dose: 100 mls/hr Insulin Human Regular (Novolin R) 0 unit SC ACHS [facility] PRN Reason: Protocol Last Admin: 07/03/17 12:04 Dose: 3 unit Oxycodone/Acetaminophen (Percocet 5/325 Mg Tab) 2 tab PO Q4H PRN PRN Reason: Pain, moderate (4-7) Stop: 07/04/17 09:07 - Labs Labs: 07/02/17 08:12 07/02/17 08:12 PT 13.3 SECONDS (9.7-12.2) H 06/30/17 13:02 INR 1.2 06/30/17 13:02 APTT 27 SECONDS (21-34) 06/30/17 13:02 - Constitutional Appears: No Acute Distress - Head Exam Head Exam: NORMAL INSPECTION - Eye Exam Eye Exam: EOMI, PERRL - ENT Exam ENT Exam: Normal Oropharynx - Neck Exam Neck Exam: Normal Inspection - Respiratory Exam Respiratory Exam: Clear to Ausculation Bilateral - Cardiovascular Exam Cardiovascular Exam: REGULAR RHYTHM, +S1, +S2 - GI/Abdominal Exam GI & Abdominal Exam: Soft, Normal Bowel Sounds. absent: Organomegaly - Extremities Exam Extremities Exam: Pedal Edema (RIGHT THIGH LESS DRAINAGE, WOUND LOOKS CLEAN / THIGH INDURATION AROUND THE WOUND.). absent: Calf Tenderness - Psychiatric Exam Psychiatric exam: Normal Mood - Skin Skin Exam: Normal Color, Warm Assessment and Plan (1) Abscess of right thigh Status: Acute (2) T2DM (type 2 diabetes mellitus) Status: Acute - Assessment and Plan (Free Text) Plan: CONTINUE iv ZOSYN 3.375 EVERY 6 HOURLY 06/30/17. INCREASE iv VANCOMYCIN 1200MG IV EVERY 12 HOURLY. 06/30/17. VANCO TROUGH LEVEL PRIOR TO THE THIRD DOSE KEEP BETWEEN 10 AND 20. FOLLOW-UP RENAL FUNCTIONS CLOSELY. LWC PER SURGERY..
--- NOTE | 2017-07-03 15:16 | CP.PCM.PCO ---
Physician Communication Note - Physician Communication Note Physician Communication Note: Dressing and packing changed today
--- NOTE | 2017-07-03 15:19 | VASCLAB ---
PROCEDURE: Right Lower Extremity Venous Duplex Exam. HISTORY: Leg swelling PRIORS: None. TECHNIQUE: Right common femoral, femoral, popliteal and posterior tibial, peroneal and great saphenous veins were evaluated. Flow was assessed with color Doppler, compressibility, assessment of phasic flow and augmentation response. Report prepared by NERY Clements, RVT FINDINGS: RIGHT: 1. Common Femoral Vein: 1.1. Compressibility - Fully compressible: Thrombus - None: Flow - Phasic: Augmentation -Normal: Reflux - None. 2. Femoral Vein: 2.1. Compressibility - Fully compressible: Thrombus - None: Flow - Phasic: Augmentation -Normal: Reflux - None. 3. Popliteal Vein: 3.1. Compressibility - Fully compressible: Thrombus - None: Flow - Phasic: Augmentation -Normal: Reflux - None. 4. Posterior Tibial Vein: 4.1. Compressibility - : Thrombus - : Flow - : Augmentation -: Reflux - . 5. Peroneal Vein: 5.1. Compressibility - : Thrombus - : Flow - : Augmentation -: Reflux - . 6. Great Saphenous Vein: 6.1. Compressibility - Fully compressible: Thrombus -None: Flow - Phasic: Augmentation - Normal: Reflux - None. OTHER FINDINGS: Due to swelling in the calf, the right peroneal and posterior tibial vein are not visualized. IMPRESSION: No evidence of deep or superficial vein thrombosis of the right lower extremity with excellent venous flow. Normal valve function noted of the right side. Normal venous flow noted in the left common femoral vein.
[2017-07-04] MEDS: Piperacill/Tazo 3.375gm in Dex 3.375 GM/50 ML BAG IVPB SCH ×4 (00:09→17:46)
[2017-07-04] MEDS: (Novolin R) Insulin Human Regular 100 units/ml vial SC SCH ×4 (08:13→21:30)
--- NOTE | 2017-07-04 13:22 | CP.PCM.PN ---
Subjective - Date & Time of Evaluation Date of Evaluation: 07/04/17 Time of Evaluation: 13:21 - Subjective Subjective: AFEBRILE WOUND HEALING DRESSINGS CHANGED NO DVT ? D/C HOME IN AM AFTER IV AB Objective - Vital Signs/Intake and Output Vital Signs (last 24 hours): Temp Pulse Resp BP Pulse Ox 98.5 F 74 20 141/73 97 07/04/17 08:15 07/04/17 08:15 07/04/17 08:15 07/04/17 08:15 07/04/17 08:15 Intake and Output: 07/04/17 07/04/17 11:59 23:59 Intake Total 540 Balance 540 - Medications Medications: Current Medications Hydromorphone HCl (Dilaudid) 0.5 mg IVP Q3H PRN PRN Reason: Pain, severe (8-10) Piperacillin Sod/Tazobactam Sod (Zosyn 3.375 Gm Iv Premix) 3.375 gm in 50 mls @ 100 mls/hr IVPB Q6 VANE Last Admin: 07/04/17 12:14 Dose: 100 mls/hr Vancomycin HCl 1,200 mg/ (Sodium Chloride) 250 mls @ 166.6 mls/hr IVPB Q12H VANE Last Admin: 07/04/17 02:15 Dose: 166.6 mls/hr Insulin Human Regular (Novolin R) 0 unit SC ACHS VANE PRN Reason: Protocol Last Admin: 07/04/17 12:13 Dose: 3 unit - Labs Labs: 07/02/17 08:12 07/02/17 08:12 PT 13.3 SECONDS (9.7-12.2) H 06/30/17 13:02 INR 1.2 06/30/17 13:02 APTT 27 SECONDS (21-34) 06/30/17 13:02 Assessment and Plan (1) Abscess of right thigh Status: Acute (2) T2DM (type 2 diabetes mellitus) Status: Acute
--- NOTE | 2017-07-04 22:28 | CP.PCM.PN ---
Subjective - Date & Time of Evaluation Date of Evaluation: 07/04/17 Time of Evaluation: 22:28 - Subjective Subjective: AFEBRILE, OFFERS NO NEW COMPLAINTS. RIGHT THIGH WOUND DECREASED DRAINAGE. ON IV ABX. Objective - Vital Signs/Intake and Output Vital Signs (last 24 hours): Temp Pulse Resp BP Pulse Ox 98.8 F 80 20 142/78 96 07/04/17 16:00 07/04/17 16:00 07/04/17 16:00 07/04/17 16:00 07/04/17 16:00 Intake and Output: 07/04/17 07/05/17 18:59 06:59 Intake Total 1340 Output Total 600 Balance 740 - Medications Medications: Current Medications Hydromorphone HCl (Dilaudid) 0.5 mg IVP Q3H PRN PRN Reason: Pain, severe (8-10) Piperacillin Sod/Tazobactam Sod (Zosyn 3.375 Gm Iv Premix) 3.375 gm in 50 mls @ 100 mls/hr IVPB Q6 VANE Last Admin: 07/04/17 17:46 Dose: 100 mls/hr Vancomycin HCl 1,200 mg/ (Sodium Chloride) 250 mls @ 166.6 mls/hr IVPB Q12H VANE Last Admin: 07/04/17 14:09 Dose: 166.6 mls/hr Insulin Human Regular (Novolin R) 0 unit SC ACHS VANE PRN Reason: Protocol Last Admin: 07/04/17 17:47 Dose: 2 unit - Labs Labs: 07/02/17 08:12 07/02/17 08:12 PT 13.3 SECONDS (9.7-12.2) H 06/30/17 13:02 INR 1.2 06/30/17 13:02 APTT 27 SECONDS (21-34) 06/30/17 13:02 - Constitutional Appears: No Acute Distress - Head Exam Head Exam: NORMAL INSPECTION - Eye Exam Eye Exam: EOMI, PERRL - ENT Exam ENT Exam: Normal Oropharynx - Neck Exam Neck Exam: Normal Inspection - Respiratory Exam Respiratory Exam: Clear to Ausculation Bilateral - Cardiovascular Exam Cardiovascular Exam: REGULAR RHYTHM, +S1, +S2 - GI/Abdominal Exam GI & Abdominal Exam: Soft, Normal Bowel Sounds - Extremities Exam Extremities Exam: Pedal Edema (RT. CALF ABSCESS DECREASING CELLULITIS AND ERYTHEMA. DECREASING DRAINAGE.). absent: Calf Tenderness - Neurological Exam Neurological Exam: Alert, Awake, CN II-XII Intact, Normal Gait, Oriented x3 - Psychiatric Exam Psychiatric exam: Normal Mood - Skin Skin Exam: Normal Color, Warm Assessment and Plan (1) Abscess of right thigh Status: Acute (2) T2DM (type 2 diabetes mellitus) Status: Acute - Assessment and Plan (Free Text) Plan: CONTINUE iv ZOSYN 3.375 EVERY 6 HOURLY 06/30/17. ON iv VANCOMYCIN 1200MG IV EVERY 12 HOURLY. 06/30/17. VANCO TROUGH LEVEL PRIOR TO THE THIRD DOSE KEEP BETWEEN 10 AND 20. F/U CBC F/U BMP WOUND CULTURE IN AM FOLLOW-UP RENAL FUNCTIONS CLOSELY. LWC PER SURGERY..
[2017-07-05] MEDS: Piperacill/Tazo 3.375gm in Dex 3.375 GM/50 ML BAG IVPB SCH ×5 (00:15→23:57)
[2017-07-05 07:49] LABS: BASO # 0.1 K/uL (0.0-0.2); BASO % 0.7 % (0.0-2.0); EOS # 0.2 K/uL (0.0-0.7); EOS % 1.9 % (0.0-4.0); LYMPH # 1.8 K/uL (1.0-4.3); LYMPH % 17.7 % (20.0-40.0); MEAN CELL VOLUME 85.7 fL (80.0-94.0); MEAN CORPUSCULAR HEMOGLOBIN 29.7 pg (27.0-31.0); MEAN CORPUSCULAR HGB CONC 34.6 g/dL (33.0-37.0); MEAN PLATELET VOLUME 7.9 fL (7.2-11.7); MONO % 10.1 % (0.0-10.0); NEUT # 6.9 K/uL (1.8-7.0); NEUT % 69.6 % (50.0-75.0); NRBC % 0.1 % (0.0-2.0); RBC 4.72 Mil/uL (4.40-5.90); WHITE BLOOD COUNT 9.9 K/uL (4.8-10.8)
[2017-07-05] MEDS: (Novolin R) Insulin Human Regular 100 units/ml vial SC SCH ×4 (08:15→21:45)
[2017-07-05 08:21] LABS: ALB/GLOB RATIO 0.8 (1.0-2.1); ALBUMIN 3.2 g/dL (3.5-5.0); ALT/SGPT 25 U/L (21-72); AST/SGOT 25 U/L (17-59); BILIRUBIN,DIRECT 0.5 mg/dL (0.0-0.4); BLOOD UREA NITROGEN 10 mg/dL (9-20); CALCIUM 8.6 mg/dl (8.6-10.4); GFR AFRICAN-AMERICAN > 60; GFR NON-AFRICAN AMERICAN > 60
[2017-07-05] MEDS ORDERED: Potassium Chloride 20 mEq ER Tab PO ONE (12:00)
[2017-07-05] MEDS ORDERED: guaiFENesin DM 200 mg-20 mg/10 ml UD PO ONE (12:15)
--- NOTE | 2017-07-05 13:46 | CP.PCM.PN ---
Subjective - Date & Time of Evaluation Date of Evaluation: 07/05/17 Time of Evaluation: 13:45 - Subjective Subjective: AFEBRILE ON IV AB WOUND HEALING Objective - Vital Signs/Intake and Output Vital Signs (last 24 hours): Temp Pulse Resp BP Pulse Ox 98.8 F 93 H 20 136/82 95 07/05/17 00:00 07/05/17 00:00 07/05/17 00:00 07/05/17 00:00 07/05/17 00:00 Intake and Output: 07/05/17 07/05/17 11:59 23:59 Intake Total 650 Output Total 600 Balance 50 - Medications Medications: Current Medications Hydromorphone HCl (Dilaudid) 0.5 mg IVP Q3H PRN PRN Reason: Pain, severe (8-10) Piperacillin Sod/Tazobactam Sod (Zosyn 3.375 Gm Iv Premix) 3.375 gm in 50 mls @ 100 mls/hr IVPB Q6 VANE Last Admin: 07/05/17 11:37 Dose: 100 mls/hr Vancomycin HCl 1,200 mg/ (Sodium Chloride) 250 mls @ 166.6 mls/hr IVPB Q12H VANE Last Admin: 07/05/17 02:29 Dose: 166.6 mls/hr Insulin Human Regular (Novolin R) 0 unit SC ACHS VANE PRN Reason: Protocol Last Admin: 07/05/17 11:57 Dose: 2 unit - Labs Labs: 07/05/17 07:44 07/05/17 07:44 PT 13.3 SECONDS (9.7-12.2) H 06/30/17 13:02 INR 1.2 06/30/17 13:02 APTT 27 SECONDS (21-34) 06/30/17 13:02 Assessment and Plan (1) Abscess of right thigh Status: Acute (2) T2DM (type 2 diabetes mellitus) Status: Acute
[2017-07-05] MEDS: Promethazine DM 6.25 mg-15 mg/5 ml Syrup PO PRN (19:37)
--- NOTE | 2017-07-06 04:11 | CP.PCM.PN ---
Subjective - Date & Time of Evaluation Date of Evaluation: 07/05/17 Time of Evaluation: 19:35 - Subjective Subjective: AFEBRILE, lEFT THIGH ABSCESS CELLULITIS AND IMPROVING DRAINAGE. tOLERATING iv ANTIBIOTICS. LABS ; REVIEWED. Objective - Vital Signs/Intake and Output Vital Signs (last 24 hours): Temp Pulse Resp BP Pulse Ox 99.1 F 108 H 20 132/76 96 07/06/17 00:00 07/06/17 00:00 07/06/17 00:00 07/06/17 00:00 07/06/17 00:00 Intake and Output: 07/05/17 07/06/17 18:59 06:59 Intake Total 1080 500 Output Total 600 Balance 1080 -100 - Medications Medications: Current Medications Hydromorphone HCl (Dilaudid) 0.5 mg IVP Q3H PRN PRN Reason: Pain, severe (8-10) Piperacillin Sod/Tazobactam Sod (Zosyn 3.375 Gm Iv Premix) 3.375 gm in 50 mls @ 100 mls/hr IVPB Q6 VANE Last Admin: 07/05/17 23:57 Dose: 100 mls/hr Vancomycin HCl 1,200 mg/ (Sodium Chloride) 250 mls @ 166.6 mls/hr IVPB Q12H VANE Last Admin: 07/06/17 02:15 Dose: 166.6 mls/hr Insulin Human Regular (Novolin R) 0 unit SC ACHS VANE PRN Reason: Protocol Last Admin: 07/05/17 21:45 Dose: Not Given Promethazine HCl/Dextromethorphan (Phenergan Dm Syrup) 5 ml PO TID PRN PRN Reason: Cough Last Admin: 07/05/17 19:37 Dose: 5 ml - Labs Labs: 07/05/17 07:44 07/05/17 07:44 PT 13.3 SECONDS (9.7-12.2) H 06/30/17 13:02 INR 1.2 06/30/17 13:02 APTT 27 SECONDS (21-34) 06/30/17 13:02 - Constitutional Appears: No Acute Distress - Head Exam Head Exam: NORMAL INSPECTION - Eye Exam Eye Exam: EOMI, PERRL - ENT Exam ENT Exam: Normal Oropharynx - Respiratory Exam Respiratory Exam: Clear to Ausculation Bilateral - Cardiovascular Exam Cardiovascular Exam: REGULAR RHYTHM, +S1, +S2 - GI/Abdominal Exam GI & Abdominal Exam: Soft, Normal Bowel Sounds - Extremities Exam Extremities Exam: Normal Capillary Refill (LEFT THIGH DRESSING IN PLACE.). absent: Calf Tenderness, Pedal Edema - Neurological Exam Neurological Exam: Alert, Awake, CN II-XII Intact, Oriented x3 - Psychiatric Exam Psychiatric exam: Normal Mood - Skin Skin Exam: Normal Color, Warm Assessment and Plan (1) Abscess of right thigh Status: Acute (2) T2DM (type 2 diabetes mellitus) Status: Acute - Assessment and Plan (Free Text) Plan: CONTINUE iv ZOSYN 3.375 EVERY 6 HOURLY 06/30/17. ON iv VANCOMYCIN 1200MG IV EVERY 12 HOURLY. 06/30/17. VANCO TROUGH LEVEL PRIOR TO THE THIRD DOSE KEEP BETWEEN 10 AND 20. WOUND CULTURE -PENDING FOLLOW-UP RENAL FUNCTIONS CLOSELY. LWC PER SURGERY..
[2017-07-06] MEDS: Piperacill/Tazo 3.375gm in Dex 3.375 GM/50 ML BAG IVPB SCH (05:53)
[2017-07-06] MEDS: (Novolin R) Insulin Human Regular 100 units/ml vial SC SCH ×4 (07:55→21:27)
[2017-07-06] MEDS: Promethazine DM 6.25 mg-15 mg/5 ml Syrup PO PRN ×2 (10:29→14:08)
--- NOTE | 2017-07-06 14:47 | CP.PCM.PN ---
Subjective - Date & Time of Evaluation Date of Evaluation: 07/06/17 Time of Evaluation: 14:46 - Subjective Subjective: AFEBRILE WOUND HEALING WELL IV AB Objective - Vital Signs/Intake and Output Vital Signs (last 24 hours): Temp Pulse Resp BP Pulse Ox 99.3 F 108 H 20 131/81 95 07/06/17 08:00 07/06/17 08:00 07/06/17 08:00 07/06/17 08:00 07/06/17 08:00 Intake and Output: 07/06/17 07/06/17 11:59 23:59 Intake Total 350 900 Output Total 500 600 Balance -150 300 - Medications Medications: Current Medications Hydromorphone HCl (Dilaudid) 0.5 mg IVP Q3H PRN PRN Reason: Pain, severe (8-10) Vancomycin HCl 1,200 mg/ (Sodium Chloride) 250 mls @ 166.6 mls/hr IVPB Q12H VANE Last Admin: 07/06/17 14:07 Dose: 166.6 mls/hr Piperacillin Sod/Tazobactam (Sod 3.375 gm/ Sodium Chloride) 100 mls @ 100 mls/ hr IVPB Q6 VANE Insulin Human Regular (Novolin R) 0 unit SC ACHS VANE PRN Reason: Protocol Last Admin: 07/06/17 11:59 Dose: 2 unit Promethazine HCl/Dextromethorphan (Phenergan Dm Syrup) 5 ml PO TID PRN PRN Reason: Cough Last Admin: 07/06/17 14:08 Dose: 5 ml - Labs Labs: 07/05/17 07:44 07/05/17 07:44 PT 13.3 SECONDS (9.7-12.2) H 06/30/17 13:02 INR 1.2 06/30/17 13:02 APTT 27 SECONDS (21-34) 06/30/17 13:02 Assessment and Plan (1) Abscess of right thigh Status: Acute (2) T2DM (type 2 diabetes mellitus) Status: Acute
[2017-07-06] MEDS: Piperacillin/Tazobact 3.375 GM in Sodium Chloride 0.9% 100 ML IVPB SCH (17:35)
--- NOTE | 2017-07-06 23:40 | CP.PCM.PN ---
Subjective - Date & Time of Evaluation Date of Evaluation: 07/06/17 Time of Evaluation: 23:40 - Subjective Subjective: SPIKING TEMPERATURES TO 102.1. VITAL SIGNS STABLE OFFERS NO NEW COMPLAINTS. DENIES SHORTNESS OF BREATH OR COUGH. LABS REVIEWED; BLOOD CULTURES 07/05/17 -VE GROWTH. WOUND CULTURES 07/05/17 -VE GROWTH FOR 24 HOURS. Objective - Vital Signs/Intake and Output Vital Signs (last 24 hours): Temp Pulse Resp BP Pulse Ox 100.5 F H 100 H 20 140/80 96 07/06/17 20:00 07/06/17 20:00 07/06/17 20:00 07/06/17 20:00 07/06/17 20:00 Intake and Output: 07/06/17 07/07/17 18:59 06:59 Intake Total 900 Output Total 600 Balance 300 - Medications Medications: Current Medications Acetaminophen (Tylenol 325mg Tab) 650 mg PO Q6 PRN PRN Reason: fever 101 and above Hydromorphone HCl (Dilaudid) 0.5 mg IVP Q3H PRN PRN Reason: Pain, severe (8-10) Vancomycin HCl 1,200 mg/ (Sodium Chloride) 250 mls @ 166.6 mls/hr IVPB Q12H VANE Last Admin: 07/06/17 14:07 Dose: 166.6 mls/hr Piperacillin Sod/Tazobactam (Sod 3.375 gm/ Sodium Chloride) 100 mls @ 100 mls/ hr IVPB Q6 VANE Last Admin: 07/06/17 17:35 Dose: 100 mls/hr Insulin Human Regular (Novolin R) 0 unit SC ACHS VANE PRN Reason: Protocol Last Admin: 07/06/17 21:27 Dose: Not Given Promethazine HCl/Dextromethorphan (Phenergan Dm Syrup) 5 ml PO TID PRN PRN Reason: Cough Last Admin: 07/06/17 14:08 Dose: 5 ml - Labs Labs: 07/05/17 07:44 07/05/17 07:44 PT 13.3 SECONDS (9.7-12.2) H 06/30/17 13:02 INR 1.2 06/30/17 13:02 APTT 27 SECONDS (21-34) 06/30/17 13:02 - Constitutional Appears: No Acute Distress - Head Exam Head Exam: NORMAL INSPECTION - Eye Exam Eye Exam: EOMI, PERRL - ENT Exam ENT Exam: Normal Oropharynx - Neck Exam Neck Exam: Normal Inspection - Respiratory Exam Respiratory Exam: Clear to Ausculation Bilateral - Cardiovascular Exam Cardiovascular Exam: Tachycardia, REGULAR RHYTHM, +S1, +S2 - GI/Abdominal Exam GI & Abdominal Exam: Soft, Normal Bowel Sounds. absent: Tenderness, Organomegaly - Extremities Exam Extremities Exam: Pedal Edema (RIGHT THIGH ABSCESS WITH DRESSING. DECREASING CELLULITIS/DECREASING DRAINAGE.). absent: Calf Tenderness - Neurological Exam Neurological Exam: Alert, Awake, CN II-XII Intact, Oriented x3, Reflexes Normal - Psychiatric Exam Psychiatric exam: Normal Mood - Skin Skin Exam: Normal Color, Warm Assessment and Plan (1) Abscess of right thigh Status: Acute (2) T2DM (type 2 diabetes mellitus) Status: Acute - Assessment and Plan (Free Text) Plan: CONTINUE iv ZOSYN 3.375 EVERY 6 HOURLY 06/30/17. ON iv VANCOMYCIN 1200MG IV EVERY 12 HOURLY. 06/30/17. VANCO TROUGH LEVEL PRIOR TO THE THIRD DOSE KEEP BETWEEN 10 AND 20. F/U CULTURES AND FEVER CURVE. CHEST X-RAY IN A.M. R/O PNEUMONIA. FOLLOW-UP RENAL FUNCTIONS CLOSELY. PATIENT WITH RECURRENT FEVERS. WILL DISCUSS WITH SURGERY.
[2017-07-07] MEDS: Piperacillin/Tazobact 3.375 GM in Sodium Chloride 0.9% 100 ML IVPB SCH ×4 (00:34→17:33)
[2017-07-07] MEDS: (Novolin R) Insulin Human Regular 100 units/ml vial SC SCH ×4 (08:01→22:04)
--- NOTE | 2017-07-07 08:12 | RAD ---
Chest x-ray single frontal view History: Pneumonia. Comparison: 06/30/2017 Findings: Mild venous congestion. Right hilar prominence. Heart size within normal limits. Degenerative changes in the spine and shoulders. Impression: Mild venous congestion. Right hilar prominence.
[2017-07-07 08:28] VITALS: RESP 20
[2017-07-07 08:33] LABS: BASO % 0.6 % (0.0-2.0); EOS # 0.1 K/uL (0.0-0.7); EOS % 0.9 % (0.0-4.0); HEMOGLOBIN 13.8 g/dL (12.0-18.0); LYMPH # 1.4 K/uL (1.0-4.3); LYMPH % 21.3 % (20.0-40.0); MEAN CELL VOLUME 86.5 fL (80.0-94.0); MEAN CORPUSCULAR HEMOGLOBIN 29.5 pg (27.0-31.0); MEAN PLATELET VOLUME 8.4 fL (7.2-11.7); MONO # 1.1 K/uL (0.0-0.8); NEUT # 4.1 K/uL (1.8-7.0); NEUT % 60.2 % (50.0-75.0); RBC 4.7 Mil/uL (4.40-5.90); RED CELL DISTRIBUTION WIDTH 13.2 % (11.5-14.5); WHITE BLOOD COUNT 6.8 K/uL (4.8-10.8)
[2017-07-07 08:51] LABS: BLOOD UREA NITROGEN 8 mg/dL (9-20); CALCIUM 8.1 mg/dl (8.6-10.4); GFR AFRICAN-AMERICAN > 60; GFR NON-AFRICAN AMERICAN > 60
[2017-07-07] MEDS: Promethazine DM 6.25 mg-15 mg/5 ml Syrup PO PRN ×2 (09:08→13:57)
[2017-07-07] MEDS ORDERED: Iodixanol 320 MG/ML 100 ML BOTTLE IV ONE (10:26)
--- NOTE | 2017-07-07 12:20 | CT ---
PROCEDURE: CT right lower extremity HISTORY: Prior abscess increasing wbc post drainag COMPARISON: MRI right lower extremity 07/02/2017 TECHNIQUE: 2.5 mm contiguous axial sections were acquired through the right lower extremity from the inferior pelvis through the proximal tibia. Sagittal and coronal images were reformatted from the axial scan. Dose: Total exam DLP: 939.66 mGy-cm Contrast administered: 100 mL Visipaque 320 FINDINGS: There is an open wound in the medial right mid thigh. There is no underlying abscess identified. There is cellulitis noted about this wound, predominantly posterior to the wound in the medial right thigh. There is also probable cellulitis about the proximal left tibia. There is a questionable small fluid collection with peripheral enhancement in the anterior medial left lower extremity adjacent to the proximal tibia, measuring 0.7 x 1.6 x 2.2 cm. It is somewhat irregular. It is not clearly demonstrated to be a drainable collection. There is adjacent cellulitis. No other fluid collection is identified. There is no abnormality of the visualized muscles. The visualized inferior pelvis is unremarkable. The osseous structures are unremarkable. There is no osseous erosion or periosteal reaction appreciated. IMPRESSION: Possible small irregular fluid collection with peripheral enhancement in the medial proximal lower extremity adjacent to the proximal tibia, 2.2 cm greatest dimension. Irregular shape. Not clearly demonstrated to be a drainable collection. Open wound medial mid left thigh with no underlying abscess. No
--- NOTE | 2017-07-07 13:17 | CP.PCM.PN ---
Subjective - Date & Time of Evaluation Date of Evaluation: 07/07/17 Time of Evaluation: 13:16 - Subjective Subjective: SPIKING TEMP WOUND HEALING IV AB D/W ID FOR FURTHER PLAN Objective - Vital Signs/Intake and Output Vital Signs (last 24 hours): Temp Pulse Resp BP Pulse Ox 98.9 F 91 H 20 129/74 96 07/07/17 08:26 07/07/17 08:26 07/07/17 08:26 07/07/17 08:26 07/07/17 08:26 Intake and Output: 07/07/17 07/07/17 11:59 23:59 Intake Total 420 Balance 420 - Medications Medications: Current Medications Acetaminophen (Tylenol 325mg Tab) 650 mg PO Q6 PRN PRN Reason: fever 101 and above Hydromorphone HCl (Dilaudid) 0.5 mg IVP Q3H PRN PRN Reason: Pain, severe (8-10) Vancomycin HCl 1,200 mg/ (Sodium Chloride) 250 mls @ 166.6 mls/hr IVPB Q12H VANE Last Admin: 07/07/17 01:58 Dose: 166.6 mls/hr Piperacillin Sod/Tazobactam (Sod 3.375 gm/ Sodium Chloride) 100 mls @ 100 mls/ hr IVPB Q6 VANE Last Admin: 07/07/17 11:58 Dose: 100 mls/hr Insulin Human Regular (Novolin R) 0 unit SC ACHS VANE PRN Reason: Protocol Last Admin: 07/07/17 11:57 Dose: Not Given Promethazine HCl/Dextromethorphan (Phenergan Dm Syrup) 5 ml PO TID PRN PRN Reason: Cough Last Admin: 07/07/17 09:08 Dose: 5 ml - Labs Labs: 07/07/17 08:20 07/07/17 08:20 PT 13.3 SECONDS (9.7-12.2) H 06/30/17 13:02 INR 1.2 06/30/17 13:02 APTT 27 SECONDS (21-34) 06/30/17 13:02 Assessment and Plan (1) Abscess of right thigh Status: Acute (2) T2DM (type 2 diabetes mellitus) Status: Acute
--- NOTE | 2017-07-07 16:13 | CP.PCM.PN ---
Subjective - Date & Time of Evaluation Date of Evaluation: 07/07/17 Time of Evaluation: 16:10 - Subjective Subjective: General Surgery Progress Note for Dr. Ferrara This 57M was seen and examined this Am at bedside. Pt had a fever overnight wound was assessed and showing good granulation tissue no purulence. Objective - Vital Signs/Intake and Output Vital Signs (last 24 hours): Temp Pulse Resp BP Pulse Ox 98.9 F 91 H 20 129/74 96 07/07/17 08:26 07/07/17 08:26 07/07/17 08:26 07/07/17 08:26 07/07/17 08:26 Intake and Output: 07/07/17 07/07/17 06:59 18:59 Intake Total 1470 Output Total 800 Balance 670 - Medications Medications: Current Medications Acetaminophen (Tylenol 325mg Tab) 650 mg PO Q6 PRN PRN Reason: fever 101 and above Hydromorphone HCl (Dilaudid) 0.5 mg IVP Q3H PRN PRN Reason: Pain, severe (8-10) Vancomycin HCl 1,200 mg/ (Sodium Chloride) 250 mls @ 166.6 mls/hr IVPB Q12H VANE Last Admin: 07/07/17 13:57 Dose: 166.6 mls/hr Piperacillin Sod/Tazobactam (Sod 3.375 gm/ Sodium Chloride) 100 mls @ 100 mls/ hr IVPB Q6 VANE Last Admin: 07/07/17 11:58 Dose: 100 mls/hr Insulin Human Regular (Novolin R) 0 unit SC ACHS VANE PRN Reason: Protocol Last Admin: 07/07/17 11:57 Dose: Not Given Promethazine HCl/Dextromethorphan (Phenergan Dm Syrup) 5 ml PO TID PRN PRN Reason: Cough Last Admin: 07/07/17 13:57 Dose: 5 ml - Labs Labs: 07/07/17 08:20 07/07/17 08:20 PT 13.3 SECONDS (9.7-12.2) H 06/30/17 13:02 INR 1.2 06/30/17 13:02 APTT 27 SECONDS (21-34) 06/30/17 13:02 - Constitutional Appears: No Acute Distress - Head Exam Head Exam: ATRAUMATIC, NORMOCEPHALIC - Eye Exam Eye Exam: Normal appearance - ENT Exam ENT Exam: Mucous Membranes Moist - Respiratory Exam Respiratory Exam: NORMAL BREATHING PATTERN - Cardiovascular Exam Cardiovascular Exam: REGULAR RHYTHM - GI/Abdominal Exam GI & Abdominal Exam: Soft. absent: Distended, Tenderness - Extremities Exam Additional comments: RLE: distal thigh wound, erthyema, induration present. Dressing Intact Pulses present bilaterally, Chronic skin changes in LEs bilaterally - Neurological Exam Neurological Exam: Alert, Awake, Oriented x3 - Psychiatric Exam Psychiatric exam: Normal Affect, Normal Mood - Skin Skin Exam: Dry, Warm Assessment and Plan - Assessment and Plan (Free Text) Assessment: 57M with right medial thigh abscess Wound packing changes to be managed by wound care recommend medical workup for fever D/W Dr. Josias Llanes PGY2
--- NOTE | 2017-07-07 17:58 | CP.PCM.PN ---
Subjective - Date & Time of Evaluation Date of Evaluation: 07/07/17 Time of Evaluation: 17:57 - Subjective Subjective: low-grade temperature. tmax 99.5, vital signs stable Swelling and induration right leg and thigh improving. Dressing in place. CT of the right lower extremity noted. Case discussed with surgical team. Presently no drainable collection. Labs reviewed. BLOOD CULTURES 07/05/17 NEGATIVE GROWTH TO DATE. WOUND CULTURE RIGHT THIGH ABSCESS NEGATIVE GROWTH CXR 07/06/17 MILD VENOUS CONGESTION, NO ACUTE INFILTRATE. rENAL FUNCTIONS STABLE. Objective - Vital Signs/Intake and Output Vital Signs (last 24 hours): Temp Pulse Resp BP Pulse Ox 99.5 F 83 20 142/81 94 L 07/07/17 16:00 07/07/17 16:00 07/07/17 16:00 07/07/17 16:00 07/07/17 16:00 Intake and Output: 07/07/17 07/07/17 06:59 18:59 Intake Total 1470 Output Total 800 Balance 670 - Medications Medications: Current Medications Acetaminophen (Tylenol 325mg Tab) 650 mg PO Q6 PRN PRN Reason: fever 101 and above Hydromorphone HCl (Dilaudid) 0.5 mg IVP Q3H PRN PRN Reason: Pain, severe (8-10) Vancomycin HCl 1,200 mg/ (Sodium Chloride) 250 mls @ 166.6 mls/hr IVPB Q12H [facility] Last Admin: 07/07/17 13:57 Dose: 166.6 mls/hr Piperacillin Sod/Tazobactam (Sod 3.375 gm/ Sodium Chloride) 100 mls @ 100 mls/ hr IVPB Q6 VANE Last Admin: 07/07/17 17:33 Dose: 100 mls/hr Insulin Human Regular (Novolin R) 0 unit SC ACHS VANE PRN Reason: Protocol Last Admin: 07/07/17 16:30 Dose: Not Given Promethazine HCl/Dextromethorphan (Phenergan Dm Syrup) 5 ml PO TID PRN PRN Reason: Cough Last Admin: 07/07/17 13:57 Dose: 5 ml - Labs Labs: 07/07/17 08:20 07/07/17 08:20 PT 13.3 SECONDS (9.7-12.2) H 06/30/17 13:02 INR 1.2 06/30/17 13:02 APTT 27 SECONDS (21-34) 06/30/17 13:02 - Constitutional Appears: No Acute Distress - Head Exam Head Exam: NORMAL INSPECTION - Eye Exam Eye Exam: EOMI, PERRL - ENT Exam ENT Exam: Normal Oropharynx - Neck Exam Neck Exam: Normal Inspection - Respiratory Exam Respiratory Exam: Clear to Ausculation Bilateral - Cardiovascular Exam Cardiovascular Exam: REGULAR RHYTHM, +S1, +S2 - GI/Abdominal Exam GI & Abdominal Exam: Soft, Normal Bowel Sounds - Extremities Exam Extremities Exam: Pedal Edema (ONE PLUS). absent: Calf Tenderness, Tenderness - Neurological Exam Neurological Exam: Awake, CN II-XII Intact, Oriented x3, Reflexes Normal - Psychiatric Exam Psychiatric exam: Normal Mood - Skin Skin Exam: Normal Color, Warm Assessment and Plan (1) Abscess of right thigh Status: Acute (2) T2DM (type 2 diabetes mellitus) Status: Acute - Assessment and Plan (Free Text) Plan: CONTINUE iv ZOSYN 3.375 EVERY 6 HOURLY 06/30/17. ON iv VANCOMYCIN 1200MG IV EVERY 12 HOURLY. 06/30/17. VANCO TROUGH LEVEL PRIOR TO THE NEXT DOSE AND KEEP BETWEEN 10 AND 20. F/U CULTURES AND FEVER CURVE. IF STABLE AND NO RECURRENT FEVERS WILL CONSIDER PLACING PATIENT ON BY MOUTH CIPRO 750 MG TWICE A DAY X 10 DAYS PO BACID 1TAB PO HS X 10 DAYS F/U IN OFFICE IN X1WEEK.
[2017-07-08] MEDS: Piperacillin/Tazobact 3.375 GM in Sodium Chloride 0.9% 100 ML IVPB SCH ×5 (00:02→23:44)
[2017-07-08] MEDS: (Novolin R) Insulin Human Regular 100 units/ml vial SC SCH ×4 (08:00→22:00)
--- NOTE | 2017-07-08 13:54 | CP.PCM.PN ---
Subjective - Date & Time of Evaluation Date of Evaluation: 07/08/17 Time of Evaluation: 13:54 - Subjective Subjective: NO FURTHER FEVER WOUND HEALING NO PUS D/W ID Objective - Vital Signs/Intake and Output Vital Signs (last 24 hours): Temp Pulse Resp BP Pulse Ox 98.4 F 84 20 129/70 96 07/08/17 07:47 07/08/17 07:47 07/08/17 07:47 07/08/17 07:47 07/08/17 07:47 Intake and Output: 07/08/17 07/08/17 11:59 23:59 Intake Total 550 Balance 550 - Medications Medications: Current Medications Acetaminophen (Tylenol 325mg Tab) 650 mg PO Q6 PRN PRN Reason: fever 101 and above Hydromorphone HCl (Dilaudid) 0.5 mg IVP Q3H PRN PRN Reason: Pain, severe (8-10) Vancomycin HCl 1,200 mg/ (Sodium Chloride) 250 mls @ 166.6 mls/hr IVPB Q12H VANE Last Admin: 07/08/17 13:39 Dose: 166.6 mls/hr Piperacillin Sod/Tazobactam (Sod 3.375 gm/ Sodium Chloride) 100 mls @ 100 mls/ hr IVPB Q6 VANE Last Admin: 07/08/17 11:10 Dose: 100 mls/hr Insulin Human Regular (Novolin R) 0 unit SC ACHS VANE PRN Reason: Protocol Last Admin: 07/08/17 11:53 Dose: 3 unit Promethazine HCl/Dextromethorphan (Phenergan Dm Syrup) 5 ml PO TID PRN PRN Reason: Cough Last Admin: 07/07/17 13:57 Dose: 5 ml - Labs Labs: 07/07/17 08:20 07/07/17 08:20 PT 13.3 SECONDS (9.7-12.2) H 06/30/17 13:02 INR 1.2 06/30/17 13:02 APTT 27 SECONDS (21-34) 06/30/17 13:02 Assessment and Plan (1) Abscess of right thigh Status: Acute (2) T2DM (type 2 diabetes mellitus) Status: Acute
--- NOTE | 2017-07-08 22:38 | CP.PCM.PN ---
Subjective - Date & Time of Evaluation Date of Evaluation: 07/08/17 Time of Evaluation: 22:38 - Subjective Subjective: AFEBRILE. RIGHT THIGH CELLULITIS/DRAINAGE DECREASING DISCUSSED WITH PMD/ANDNP MS TIAN. CAN SWITCH TO BY MOUTH CIPRO 750 MG TWICE A DAY FOR 10 DAYS ON DISCHARGE. fOLLOW-UP WITH SURGERY TEAM AND ID NEXT WEEK. Objective - Vital Signs/Intake and Output Vital Signs (last 24 hours): Temp Pulse Resp BP Pulse Ox 99.2 F 84 20 133/76 94 L 07/08/17 15:15 07/08/17 16:08 07/08/17 15:15 07/08/17 15:15 07/08/17 16:08 Intake and Output: 07/08/17 07/09/17 18:59 06:59 Intake Total 950 Balance 950 - Medications Medications: Current Medications Acetaminophen (Tylenol 325mg Tab) 650 mg PO Q6 PRN PRN Reason: fever 101 and above Hydromorphone HCl (Dilaudid) 0.5 mg IVP Q3H PRN PRN Reason: Pain, severe (8-10) Piperacillin Sod/Tazobactam (Sod 3.375 gm/ Sodium Chloride) 100 mls @ 100 mls/ hr IVPB Q6 VANE Last Admin: 07/08/17 17:54 Dose: 100 mls/hr Vancomycin HCl 1,200 mg/ (Dextrose) 250 mls @ 166.6 mls/hr IVPB Q12H VANE Insulin Human Regular (Novolin R) 0 unit SC ACHS VANE PRN Reason: Protocol Last Admin: 07/08/17 22:00 Dose: Not Given Promethazine HCl/Dextromethorphan (Phenergan Dm Syrup) 5 ml PO TID PRN PRN Reason: Cough Last Admin: 07/07/17 13:57 Dose: 5 ml - Labs Labs: 07/07/17 08:20 07/07/17 08:20 PT 13.3 SECONDS (9.7-12.2) H 06/30/17 13:02 INR 1.2 06/30/17 13:02 APTT 27 SECONDS (21-34) 06/30/17 13:02 - Constitutional Appears: No Acute Distress - Head Exam Head Exam: NORMAL INSPECTION - Eye Exam Eye Exam: EOMI, PERRL - ENT Exam ENT Exam: Normal Oropharynx - Neck Exam Neck Exam: Normal Inspection - Respiratory Exam Respiratory Exam: Clear to Ausculation Bilateral - Cardiovascular Exam Cardiovascular Exam: REGULAR RHYTHM, +S1, +S2 - GI/Abdominal Exam GI & Abdominal Exam: Soft, Normal Bowel Sounds - Extremities Exam Extremities Exam: Normal Capillary Refill (RIGHT THIGH ABSCESS RESOLVING WITH IMPROVING CELLULITIS.. mINIMAL DRAINAGE.). absent: Calf Tenderness, Pedal Edema - Neurological Exam Neurological Exam: Awake, CN II-XII Intact, Oriented x3, Reflexes Normal - Psychiatric Exam Psychiatric exam: Normal Mood - Skin Skin Exam: Normal Color, Warm Assessment and Plan (1) Abscess of right thigh Status: Acute (2) T2DM (type 2 diabetes mellitus) Status: Acute - Assessment and Plan (Free Text) Plan: CIPRO 750 MG TWICE A DAY X 10 DAYS PO BACID 1TAB PO HS X 10 DAYS F/U IN OFFICE IN X1WEEK.
[2017-07-09 01:15] VITALS: O2SAT 95
[2017-07-09] MEDS: WATER IVPB SCH ×2 (01:46→14:35)
[2017-07-09] MEDS: DEXTROSE 5% IVPB SCH ×2 (01:46→14:35)
[2017-07-09] MEDS: VANCOMYCIN IVPB SCH ×2 (01:46→14:35)
[2017-07-09] MEDS: Piperacillin/Tazobact 3.375 GM in Sodium Chloride 0.9% 100 ML IVPB SCH ×2 (05:21→12:51)
[2017-07-09] MEDS: (Novolin R) Insulin Human Regular 100 units/ml vial SC SCH ×2 (08:18→12:30)
[2017-07-09 08:22] LABS: BASO % 0.8 % (0.0-2.0); EOS # 0.2 K/uL (0.0-0.7); EOS % 3.3 % (0.0-4.0); HEMOGLOBIN 14.1 g/dL (12.0-18.0); LYMPH # 1.4 K/uL (1.0-4.3); MEAN CELL VOLUME 85.5 fL (80.0-94.0); MEAN CORPUSCULAR HEMOGLOBIN 29.4 pg (27.0-31.0); MEAN CORPUSCULAR HGB CONC 34.4 g/dL (33.0-37.0); MEAN PLATELET VOLUME 8.4 fL (7.2-11.7); MONO # 0.8 K/uL (0.0-0.8); MONO % 16.4 % (0.0-10.0); NEUT # 2.7 K/uL (1.8-7.0); NEUT % 52.5 % (50.0-75.0); NRBC % 0.1 % (0.0-2.0); RBC 4.8 Mil/uL (4.40-5.90); RED CELL DISTRIBUTION WIDTH 13.3 % (11.5-14.5); WHITE BLOOD COUNT 5.1 K/uL (4.8-10.8)
[2017-07-09 08:40] LABS: ALB/GLOB RATIO 0.8 (1.0-2.1); ALBUMIN 3.2 g/dL (3.5-5.0); ALT/SGPT 38 U/L (21-72); AST/SGOT 36 U/L (17-59); BLOOD UREA NITROGEN 7 mg/dL (9-20); CALCIUM 8.3 mg/dl (8.6-10.4); GFR AFRICAN-AMERICAN > 60; GFR NON-AFRICAN AMERICAN > 60
[2017-07-09 08:44] VITALS: BP 128/77; PULSE 83; TEMP 98.4
[2017-07-09] MEDS ORDERED: Potassium Chloride 20 mEq ER Tab PO ONE (10:00)
--- NOTE | 2017-07-09 13:34 | CP.PCM.PN ---
Subjective - Date & Time of Evaluation Date of Evaluation: 07/09/17 Time of Evaluation: 13:34 - Subjective Subjective: AFEBRILE. RIGHT THIGH CELLULITIS/DRAINAGE DECREASING DISCUSSED WITH PMD/AND ANIMAL NUTRITIONIST MS TIAN. CAN SWITCH TO BY MOUTH CIPRO 750 MG TWICE A DAY FOR 10 DAYS ON DISCHARGE. fOLLOW-UP WITH SURGERY TEAM AND ID NEXT WEEK. FOLLOW-UP BLOOD WORKS OUTPATIENT. ALL CULTURES NEGATIVE INCLUDING BLOOD CULTURES AND WOUND CULTURES. LABS REVIEWED. rENAL FUNCTIONS STABLE LFTS STABLE. Objective - Vital Signs/Intake and Output Vital Signs (last 24 hours): Temp Pulse Resp BP Pulse Ox 98.4 F 83 20 128/77 95 07/09/17 08:43 07/09/17 08:43 07/09/17 08:43 07/09/17 08:43 07/09/17 08:43 Intake and Output: 07/09/17 07/09/17 06:59 18:59 Intake Total 1060 Output Total 800 Balance 260 - Medications Medications: Current Medications Acetaminophen (Tylenol 325mg Tab) 650 mg PO Q6 PRN PRN Reason: fever 101 and above Hydromorphone HCl (Dilaudid) 0.5 mg IVP Q3H PRN PRN Reason: Pain, severe (8-10) Piperacillin Sod/Tazobactam (Sod 3.375 gm/ Sodium Chloride) 100 mls @ 100 mls/ hr IVPB Q6 [facility] Stop: 07/09/17 15:00 Last Admin: 07/09/17 12:51 Dose: 100 mls/hr Vancomycin HCl 1,200 mg/ (Dextrose) 250 mls @ 166.6 mls/hr IVPB Q12H [facility] Last Admin: 07/09/17 01:46 Dose: 166.6 mls/hr Piperacillin Sod/Tazobactam Sod (Zosyn 3.375 Gm Iv Premix) 3.375 gm in 50 mls @ 100 mls/hr IVPB Q6 [facility] Insulin Human Regular (Novolin R) 0 unit SC ACHS VANE PRN Reason: Protocol Last Admin: 07/09/17 12:30 Dose: 2 unit Promethazine HCl/Dextromethorphan (Phenergan Dm Syrup) 5 ml PO TID PRN PRN Reason: Cough Last Admin: 07/07/17 13:57 Dose: 5 ml - Labs Labs: 07/09/17 08:06 01/31/18 08:06 PT 13.3 SECONDS (9.7-12.2) H 06/30/17 13:02 INR 1.2 06/30/17 13:02 APTT 27 SECONDS (21-34) 06/30/17 13:02 - Head Exam Head Exam: NORMAL INSPECTION - Eye Exam Eye Exam: EOMI, PERRL - ENT Exam ENT Exam: Normal Oropharynx - Neck Exam Neck Exam: Normal Inspection - Respiratory Exam Respiratory Exam: Clear to Ausculation Bilateral - Cardiovascular Exam Cardiovascular Exam: REGULAR RHYTHM, +S1, +S2 - GI/Abdominal Exam GI & Abdominal Exam: Soft, Normal Bowel Sounds. absent: Organomegaly - Extremities Exam Extremities Exam: absent: Calf Tenderness, Pedal Edema, Tenderness (RIGHT THIGH ABSCESS RESOLVING AND MINIMAL CELLULITIS AROUND THE INCISION SITE. pRESENTLY MINIMAL DRAINAGE.) - Neurological Exam Neurological Exam: Awake - Psychiatric Exam Psychiatric exam: Normal Mood - Skin Skin Exam: Normal Color, Warm Assessment and Plan (1) Abscess of right thigh Status: Acute (2) T2DM (type 2 diabetes mellitus) Status: Acute
--- NOTE | 2017-07-09 14:07 | CP.PCM.DIS ---
Provider - Provider Date of Admission: 06/30/17 13:03 Attending physician: Carlito Cruz MD Time Spent in preparation of Discharge (in minutes): 30 Diagnosis - Discharge Diagnosis (1) Abscess of right thigh Status: Acute (2) T2DM (type 2 diabetes mellitus) Status: Acute Hospital Course - Lab Results Lab Results: Micro Results 07/05/17 16:30 Blood-Venous Blood Culture - Preliminary NO GROWTH AFTER 3 DAYS 07/05/17 15:45 Blood-Venous Blood Culture - Preliminary NO GROWTH AFTER 3 DAYS 07/05/17 15:41 Leg - Right Gram Stain - Final 07/05/17 15:41 Leg - Right Wound Culture - Final No growth. 07/05/17 08:00 Urine Urine Culture - Final No Growth (<1,000 CFU/ML) 06/30/17 20:30 Blood-Venous Blood Culture - Final NO GROWTH AFTER 5 DAYS 06/30/17 20:30 Blood-Venous Gram Stain - Final TEST NOT PERFORMED 06/30/17 20:00 Blood-Venous Blood Culture - Final NO GROWTH AFTER 5 DAYS 06/30/17 20:00 Blood-Venous Gram Stain - Final TEST NOT PERFORMED 07/01/17 Unknown Nose MRSA Culture (Admit) - Final MRSA NOT DETECTED 06/30/17 Unknown Abscess - Thigh-Right Gram Stain - Final 06/30/17 Unknown Abscess - Thigh-Right Wound Culture - Final Staphylococcus Aureus 06/30/17 19:01 Abscess - Thigh-Right Gram Stain - Final 06/30/17 19:01 Abscess - Thigh-Right Wound Culture - Final Staphylococcus Aureus Most Recent Lab Values WBC 5.1 K/uL (4.8-10.8) 07/09/17 08:06 RBC 4.80 Mil/uL (4.40-5.90) 07/09/17 08:06 Hgb 14.1 g/dL (12.0-18.0) 07/09/17 08:06 Hct 41.0 % (35.0-51.0) 07/09/17 08:06 MCV 85.5 fL (80.0-94.0) 07/09/17 08:06 MCH 29.4 pg (27.0-31.0) 07/09/17 08:06 MCHC 34.4 g/dL (33.0-37.0) 07/09/17 08:06 RDW 13.3 % (11.5-14.5) 07/09/17 08:06 Plt Count 258 K/uL (130-400) 07/09/17 08:06 MPV 8.4 fL (7.2-11.7) 07/09/17 08:06 Neut % (Auto) 52.5 % (50.0-75.0) 07/09/17 08:06 Lymph % (Auto) 27.0 % (20.0-40.0) 07/09/17 08:06 [place] % (Auto) 16.4 % (0.0-10.0) H 07/09/17 08:06 Eos % (Auto) 3.3 % (0.0-4.0) 07/09/17 08:06 Baso % (Auto) 0.8 % (0.0-2.0) 07/09/17 08:06 Neut # (Auto) 2.7 K/uL (1.8-7.0) 07/09/17 08:06 Lymph # (Auto) 1.4 K/uL (1.0-4.3) 07/09/17 08:06 [place] # (Auto) 0.8 K/uL (0.0-0.8) 07/09/17 08:06 Eos # (Auto) 0.2 K/uL (0.0-0.7) 07/09/17 08:06 Baso # (Auto) 0.0 K/uL (0.0-0.2) 07/09/17 08:06 ESR 81 mm/hr (0-15) H 07/02/17 08:12 PT 13.3 SECONDS (9.7-12.2) H 06/30/17 13:02 INR 1.2 06/30/17 13:02 APTT 27 SECONDS (21-34) 06/30/17 13:02 D-Dimer, Quantitative 836 ng/mlDDU (0-243) H 07/02/17 08:12 Sodium 135 mmol/L (132-148) 07/09/17 08:06 Potassium 3.5 mmol/L (3.6-5.2) L 07/09/17 08:06 Chloride 98 mmol/L (98-107) 07/09/17 08:06 Carbon Dioxide 30 mmol/L (22-30) 07/09/17 08:06 Anion Gap 11 (10-20) 07/09/17 08:06 BUN 7 mg/dL (9-20) L 07/09/17 08:06 Creatinine 0.6 mg/dL (0.8-1.5) L 07/09/17 08:06 Est GFR ( Amer) > 60 07/09/17 08:06 Est GFR (Non-Af Amer) > 60 07/09/17 08:06 POC Glucose (mg/dL) 175 mg/dL (65-110) H 07/09/17 11:07 Random Glucose 170 mg/dL (75-110) H 07/09/17 08:06 Calcium 8.3 mg/dl (8.6-10.4) L 07/09/17 08:06 Direct Bilirubin 0.5 mg/dL (0.0-0.4) H 07/05/17 07:44 Total Bilirubin 0.7 mg/dL (0.2-1.3) 07/09/17 08:06 AST 36 U/L (17-59) 07/09/17 08:06 ALT 38 U/L (21-72) 07/09/17 08:06 Alkaline Phosphatase 66 U/L (38-126) 07/09/17 08:06 C-React Prot High Sens > 15.00 mg/L (1.00-3.00) H 07/02/17 08:12 Total Protein 7.2 g/dL (6.3-8.3) 07/09/17 08:06 Albumin 3.2 g/dL (3.5-5.0) L 07/09/17 08:06 Globulin 4.1 gm/dL (2.2-3.9) H 07/09/17 08:06 Albumin/Globulin Ratio 0.8 (1.0-2.1) L 07/09/17 08:06 Urine Color [place] (YELLOW) 06/30/17 12:42 Urine Clarity Hazy (Clear) 06/30/17 12:42 Urine pH 6.0 (5.0-8.0) 06/30/17 12:42 Ur Specific [place] 1.026 (1.003-1.030) 06/30/17 12:42 Urine Protein 2+ mg/dL (NEGATIVE) H 06/30/17 12:42 Urine Glucose (UA) 2+ mg/dL (Normal) H 06/30/17 12:42 Urine Ketones Negative mg/dL (NEGATIVE) 06/30/17 12:42 Urine Blood Negative (NEGATIVE) 06/30/17 12:42 Urine Nitrate Negative (NEGATIVE) 06/30/17 12:42 Urine Bilirubin Negative (NEGATIVE) 06/30/17 12:42 Urine Urobilinogen 4.0 mg/dL (0.2-1.0) 06/30/17 12:42 Ur Leukocyte Esterase 2+ [place]/uL (Negative) H 06/30/17 12:42 Urine WBC (Auto) 7 /hpf (0-5) H 06/30/17 12:42 Urine RBC (Auto) 3 /hpf (0-3) 06/30/17 12:42 Ur Squamous Epith Cells 13 /hpf (0-5) H 06/30/17 12:42 Urine Bacteria Rare (<OCC) 06/30/17 12:42 Vancomycin Peak 14.6 ug/mL (30.0-40.0) L 07/08/17 07:18 Vancomycin Trough < 5.0 ug/mL (5.0-10.0) L 07/08/17 03:34 Blood Type A POSITIVE 06/30/17 13:02 Antibody Screen Negative 06/30/17 13:02 - Hospital Course Hospital Course: 5 89 YEAR T2DM 3 DAYS H/O ABSCESS IN THE R. INNER THIGH WHICH HAS PARTIALLY RUPTURED FOR ADMISSION FOR I&D AND IV AB PT UNDERWENT UNEVENTFUL I&D C/S POS FOR ACENOTOBATER AND STREP B PT RESPONDED TO IV AB AND D/C HOME ON PO AB ADDENDUM 07/10/17 DUE TO FAMILY ISSUES , PT WAS D/C HOME TODAY AM . SAME INSTRUCTION Discharge Exam - Head Exam Head Exam: NORMAL INSPECTION Discharge Plan - Discharge Medications Prescriptions: Lactobacillus Acidophilus [Bacid Acidophilus] 1 cap PO DAILY #10 cap Ciprofloxacin HCl [Cipro] 500 mg PO BID #20 tablet - Follow Up Plan Condition: STABLE Disposition: HOME/ ROUTINE Instructions: Ciprofloxacin (By mouth), Probiotic (By mouth), Diabetic Foot Care (DC), Basic Carbohydrate Counting (DC), Meal Planning with Diabetes Exchanges (DC), Abscess (GEN) Referrals: Tabitha Enamorado MD [Staff Provider] - Carliot Cruz MD [Staff Provider] - Filipe Ferrara MD [Staff Provider] -
--- NOTE | 2017-07-09 15:27 | CP.PCM.PN ---
Subjective - Date & Time of Evaluation Date of Evaluation: 07/09/17 Time of Evaluation: 11:00 - Subjective Subjective: Alert, orientedx3, no sob or distress. Objective - Vital Signs/Intake and Output Vital Signs (last 24 hours): Temp Pulse Resp BP Pulse Ox 98.4 F 83 20 128/77 95 07/09/17 08:43 07/09/17 08:43 07/09/17 08:43 07/09/17 08:43 07/09/17 08:43 Intake and Output: 07/09/17 07/09/17 06:59 18:59 Intake Total 1060 700 Output Total 800 Balance 260 700 - Labs Labs: 07/09/17 08:06 07/09/17 08:06 PT 13.3 SECONDS (9.7-12.2) H 06/30/17 13:02 INR 1.2 06/30/17 13:02 APTT 27 SECONDS (21-34) 06/30/17 13:02 Assessment and Plan - Assessment and Plan (Free Text) Assessment: Patient is seen and examined. Alert and orientedx3, no fever, no distress. Family member came to learn dressing change on rt thigh daily. D/W Dr Cruz and DR Enamorado, plan to discharge home on cipro 500mg po BID [id number]. Advised to follow up with DR Enamorado and surgery in 1 week.
[2017-07-09] MEDS ORDERED: Piperacill/Tazo 3.375gm in Dex 3.375 GM/50 ML BAG IVPB SCH (18:00)
== END 2017-07-09 14:42 | disposition home or self-care (01) | DRG 581 ==
LOC: C.ER 10:22 → C.9E 13:03 → C.3T 18:07
PROVIDERS: ADMIT Internal Medicine Cardiovascular Disease; ATTEND Internal Medicine Cardiovascular Disease
PROC: 0HBHXZZ Excision of Right Upper Leg Skin, External Approach (ICD-10-PCS; 2017-06-30)
PROC: 0J9N0ZZ Drainage of Right Lower Leg Subcutaneous Tissue and Fascia, Open Approach (ICD-10-PCS; principal; 2017-06-30 15:30)
DX: L03.115 Cellulitis of right lower limb (principal); B95.5 Unspecified streptococcus as the cause of diseases classified elsewhere; E11.9 Type 2 diabetes mellitus without complications; Z79.4 Long term (current) use of insulin